=== PATIENT | male | born 1970 | race Caucasian/White ===

== ENCOUNTER 2022-09-18 01:28 | Day surgery (SDC) | payer OTHER, SELFPAY ==
[2022-09-11 10:42] VITALS: BMI 31.4
--- NOTE | 2022-09-17 13:02 | PM.HPGS ---
History of Present Illness History of Present Illness Consent: Risks, benefits, and alternatives have been discussed and questions answered. Patient agrees to proceed with procedure. Chief complaint: neoplasm screening Narrative: Hamilton Saldivar is a 52 year old male Who was referred for colon cancer screening. He also states that he gets extremely tight and bloated after drinking even a couple glasses of water or other liquid. Feels as though there may be an obstruction. The distension makes him cough and the coughing causes pain along his left costal margin, As also happens if he sits up. He is also somewhat tender along the margin. His weight is stable. He states that he has very little stool in feels that his food cannot get through or digest that there may be an obstruction. Review of Systems Review of Systems: All systems reviewed & are unremarkable except as noted in HPI and below PMFSH Past Medical History Medical History Hypertension Social History Social History Smoking packs per day: 0.5 Smoking cigarettes per day: 10.0 Smoking status: Former smoker Tobacco type: cigarettes and e-cigarettes/vaping Alcohol intake: current Drinks per week: 1 Substance use: never Substance use type: does not use Living arrangements: with family Spiritual care concerns: No Meds Home Medications and Allergies Home Medications Medication Instructions Recorded Confirmed Type lisinopril 10 mg tablet 10 mg PO DAILY 09/11/22 09/11/22 History Allergies Allergy/AdvReac Type Severity Reaction Status Date / Time cephalexin Allergy Intermediate NAUSEA/VOMI Verified 09/18/22 09:00 TTING codeine Allergy Intermediate NAUSEA/VOMI Verified 09/18/22 09:00 TTING Exam Chest: Chest palpation & inspection: tenderness ( Left costal margin) Resp: Auscultation: clear to auscultation bilaterally Cardio: Rate: regular rate Rhythm: regular rhythm GI: Inspection: other ( rounded) GI Palp: Yes Soft to palpation, No Tenderness to palpation present (GI) and Yes No hepatosplenomegaly present Percussion: Yes normal to percussion Auscultation: normal bowel sounds Assessment and Plan Assessment and plan (1) Colon cancer screening: Code(s): Z12.11 - Encounter for screening for malignant neoplasm of colon Status: Acute Assessment and Plan: Colonoscopy with possible biopsy or polypectomy or cautery or injection of substances.
[2022-09-18 09:02] VITALS: BP 156/89; PULSE 81; RESP 18; TEMP 36.4; O2SAT 99
[2022-09-18] MEDS: LACTATED RINGERS 1,000 ML 150 ML IV CONT (09:11)
--- NOTE | 2022-09-18 09:16 | WPDANESEPPF ---
Anes - Initial Pre Proc Eval Procedure: Operation Date: 09/18/22 10:15 Proposed Procedures p Screening Colonoscopy - Isaiah Waggoner MD Date/Time: 09/18/22 09:16 Surgeon: Isaiah Waggoner MD Pre Op Diagnosis: neoplasm screening Patient Data Age: 52 Gender: M Height: 1.8 m Weight: 110.8 kg Last Vital Signs Temp 36.4 C L 09/18/22 09:02 Pulse 81 09/18/22 09:02 Resp 18 09/18/22 09:02 BP 156/89 H 09/18/22 09:02 Pulse Ox 99 09/18/22 09:02 O2 Del Method Room Air 09/18/22 09:02 Allergies Allergy/AdvReac Type Severity Reaction Status Date / Time cephalexin Allergy Intermediate NAUSEA/VOMI Verified 09/18/22 09:00 TTING codeine Allergy Intermediate NAUSEA/VOMI Verified 09/18/22 09:00 TTING Home Medications Medication Instructions Recorded Confirmed Type lisinopril 10 mg tablet 10 mg PO DAILY 09/11/22 09/11/22 History Patient hx anesthesia problems: other (fighting agitated) Family hx anesthesia problems: none Results Review: All pre-operative results and documents have been reviewed as part of the pre-operative evaluation. [facility] Past Medical History Medical History Hypertension Social History Social History Smoking packs per day: 0.5 Smoking cigarettes per day: 10.0 Smoking status: Former smoker Tobacco type: cigarettes and e-cigarettes/vaping Alcohol intake: current Drinks per week: 1 Substance use: never Substance use type: does not use Living arrangements: with family Spiritual care concerns: No Anes - Eval Final PreProcedure Day of Procedure 09/18/22 09:16 Patient weight: obese Heart: regular rate and rhythm Lungs: clear to auscultation Airway: Mallampati scale class II Neurological: alert and oriented Last oral intake: >/= 8 hours ASA classification: II Emergent: no Anesthetic plan: proceed Anesthesia type and monitoring: general GIVS and standard monitoring Results Review: All pre-operative results and documents have been reviewed as part of the pre-operative evaluation. Informed Consent: The patient's anesthetic plan and its attendant risks and benefits were discussed with the patient/family/POA. Questions were solicited and answers provided to the satisfaction of the patient/family/POA.
[2022-09-18 10:48] VITALS: BP 130/95; PULSE 73; RESP 10; O2SAT 99
[2022-09-18 10:58] VITALS: BP 148/97; PULSE 71; RESP 27; O2SAT 99
[2022-09-18 11:08] VITALS: BP 127/84; PULSE 73; RESP 17; O2SAT 99
== END 2022-09-18 11:25 | disposition home or self-care (01) ==
PROVIDERS: PCP Nurse Practitioner Family; Visit Provider Internal Medicine Gastroenterology
PROC: 0DJD8ZZ Inspection of Lower Intestinal Tract, Via Natural or Artificial Opening Endoscopic (ICD-10-PCS; CPT 45378; principal; 2022-09-18 10:15)
DX: Z12.11 Encounter for screening for malignant neoplasm of colon (principal); K57.30 Diverticulosis of large intestine without perforation or abscess without bleeding; D12.5 Benign neoplasm of sigmoid colon; I10 Essential (primary) hypertension; Z87.891 Personal history of nicotine dependence; E66.9 Obesity, unspecified; Z68.34 Body mass index [BMI] 34.0-34.9, adult
CPT/HCPCS: 45380; 88305; J2001; J2704; J7120

== ENCOUNTER 2022-10-08 09:59 | Outpatient (CLI) | payer OTHER, SELFPAY ==
--- NOTE | ~2022-10-08 | XR_ITS ---
EXAMINATION: XR UGIAC w small bowel DATE: 10/08/2022 14:20 INDICATION: Gaseous abdominal distention and epigastric pain. TECHNIQUE: The patient drank thick barium, gas-producing crystals, and thin barium. Conventional supi ne abdomen radiographs and fluoroscopic spot radiographs of the esophagus, stomach, and proximal smal l bowel were obtained. Additional overhead radiographs were obtained during the transit through the s mall bowel. Spot fluoroscopic images of the small bowel were obtained upon contrast reaching the cec um. Fluoroscopy exposure time was 2.8 minutes. A total of 689 fluoroscopic images and 11 overhead rad iographs were obtained. COMPARISON: Upper GI study dated 11/23/2009 FINDINGS: The esophagus is normal without mass or stricture. Esophageal motility is normal. Unchanged very smal l sliding-type hiatal hernia with gastroesophageal junction approximately 2-3 cm above the level of t he diaphragm. There was no gastroesophageal reflux with provocative maneuvers. The stomach and proxim al small bowel are normal. Post cystectomy clips in right upper quadrant on the neurology physician radiographs. Transit time from the stomach to proximal colon was approximately 3 hours. There is normal caliber and mucosal fold pattern throug hout the small bowel. Terminal ileum is normal. No tethering or abnormal mass effect observed upon the small bowel with real-time fluoroscopy. IMPRESSION: 1. Unchanged very small sliding-type hiatal hernia. Otherwise unremarkable upper GI and small bowel f ollow-through study. Reviewed, dictated and finalized at location A. [facility]KER IMPRESSION: 1. Unchanged very small sliding-type hiatal hernia. Otherwise unremarkable uppe r GI and small bowel follow-through study.
== END 2022-10-08 10:00 | disposition home or self-care (01) ==
PROVIDERS: PCP Nurse Practitioner Family; Visit Provider Internal Medicine Gastroenterology
DX: R14.0 Abdominal distension (gaseous) (principal); K44.9 Diaphragmatic hernia without obstruction or gangrene
CPT/HCPCS: 74246; 74248

== ENCOUNTER 2023-03-27 04:22 | Day surgery (SDC) | payer OTHER, SELFPAY ==
[2023-03-12 11:17] VITALS: BMI 32.8
--- NOTE | 2023-03-26 14:49 | PM.HPGS ---
History of Present Illness History of Present Illness Consent: Risks, benefits, and alternatives have been discussed and questions answered. Patient agrees to proceed with procedure. Chief complaint: dysphagia Narrative: Hamilton Saldivar is a 52 year old male With dysphagia for food. for several months he would notice that after eating not very much would feel as though the food has not made it all the way down and he gets full easily. Surprisingly he has not lost weight. He has a lot of heartburn choose Tums all day several years ago he was on Nexium for few years when he was told he had esophagitis but he does not like to take pills and therefore had stopped it. Recent small bowel series was normal. He does feel however that there is some sort of a blockage per Review of Systems Review of Systems: All systems reviewed & are unremarkable except as noted in HPI and below PMFSH Past Medical History Medical History Hypertension Social History Social History Smoking packs per day: 1 Smoking cigarettes per day: 20.0 Years smoked: 10 Smoking pack-years: 10.00 Smoking status: Former smoker Tobacco type: cigarettes Alcohol intake: current Drinks per week: 2 Substance use: never Substance use type: does not use Living arrangements: with family Spiritual care concerns: No Meds Home Medications and Allergies Allergies Allergy/AdvReac Type Severity Reaction Status Date / Time cephalexin Allergy Intermediate NAUSEA/VOMI Verified 03/27/23 08:49 TTING codeine Allergy Intermediate NAUSEA/VOMI Verified 03/27/23 08:49 TTING Exam Const: General: alert Orientation/consciousness: patient oriented x3 Resp: Auscultation: clear to auscultation bilaterally Cardio: Rhythm: regular rhythm GI: GI Palp: Yes Soft to palpation and No Tenderness to palpation present (GI) Neuro: General: patient oriented x3 Assessment and Plan Assessment and plan (1) Dysphagia: Code(s): R13.10 - Dysphagia, unspecified Status: Acute Assessment and Plan: EGD with possible biopsy or dilatation or cautery.
[2023-03-27 08:50] VITALS: BP 152/104; PULSE 75; RESP 20; TEMP 36.3; O2SAT 98; BMI 34.5
[2023-03-27] MEDS: LACTATED RINGERS 1,000 ML 150 ML IV CONT (08:53)
--- NOTE | 2023-03-27 09:20 | WPDANESEPPF ---
Anes - Initial Pre Proc Eval Procedure: Operation Date: 03/27/23 09:45 Proposed Procedures p Esophagogastroduodenoscopy - Isaiah Waggoner MD Date/Time: 03/27/23 09:20 Surgeon: Isaiah Waggoner MD Pre Op Diagnosis: dysphagia Patient Data Age: 52 Gender: M Height: 1.8 m Weight: 112.4 kg Last Vital Signs Temp 97.3 F L 03/27/23 08:50 Pulse 75 03/27/23 08:50 Resp 20 03/27/23 08:50 BP 152/104 H 03/27/23 08:50 Pulse Ox 98 03/27/23 08:50 O2 Del Method Room Air 03/27/23 08:50 Allergies Allergy/AdvReac Type Severity Reaction Status Date / Time cephalexin Allergy Intermediate NAUSEA/VOMI Verified 03/27/23 08:49 TTING codeine Allergy Intermediate NAUSEA/VOMI Verified 03/27/23 08:49 TTING Patient hx anesthesia problems: none Family hx anesthesia problems: none Results Review: All pre-operative results and documents have been reviewed as part of the pre-operative evaluation. [facility] Past Medical History Medical History Hypertension Social History Social History Smoking packs per day: 1 Smoking cigarettes per day: 20.0 Years smoked: 10 Smoking pack-years: 10.00 Smoking status: Former smoker Tobacco type: cigarettes Alcohol intake: current Drinks per week: 2 Substance use: never Substance use type: does not use Living arrangements: with family Spiritual care concerns: No Anes - Eval Final PreProcedure Day of Procedure 03/27/23 09:20 Patient weight: obese Heart: regular rate and rhythm Lungs: clear to auscultation Airway: Mallampati scale class III Neurological: alert and oriented Last oral intake: >/= 8 hours ASA classification: II Emergent: no Anesthetic plan: proceed Anesthesia type and monitoring: general GIVS and standard monitoring Results Review: All pre-operative results and documents have been reviewed as part of the pre-operative evaluation. Informed Consent: The patient's anesthetic plan and its attendant risks and benefits were discussed with the patient/family/POA. Questions were solicited and answers provided to the satisfaction of the patient/family/POA.
[2023-03-27] MEDS: BENZOCAINE (*SP) 60 ML SPRAY CAN (HURRICAINE) 1 SPRAY MUCOUS MEM (09:34)
[2023-03-27 09:56] VITALS: BP 127/87; PULSE 78; RESP 23; O2SAT 94
[2023-03-27 10:06] VITALS: BP 128/90; PULSE 71; RESP 20; O2SAT 98
[2023-03-27 10:16] VITALS: BP 130/86; PULSE 64; RESP 16; O2SAT 96
== END 2023-03-27 10:25 | disposition home or self-care (01) ==
PROVIDERS: PCP Nurse Practitioner Family; Visit Provider Internal Medicine Gastroenterology
PROC: 0DJ08ZZ Inspection of Upper Intestinal Tract, Via Natural or Artificial Opening Endoscopic (ICD-10-PCS; CPT 43235; principal; 2023-03-27 09:45)
DX: K22.70 Barrett's esophagus without dysplasia (principal); Z87.891 Personal history of nicotine dependence; E66.9 Obesity, unspecified; Z68.34 Body mass index [BMI] 34.0-34.9, adult
CPT/HCPCS: 43239; 87081; 88305; J2704; J7120

== ENCOUNTER 2024-01-25 14:48 | Outpatient (CLI) | payer OTHER, SELFPAY ==
--- NOTE | ~2024-01-25 | XR_ITS ---
Lumbosacral Spine: AP and lateral views Clinical History: Pain Findings: The normal lordotic curve is maintained. The vertebral bodies and posterior elements are i ntact. The intervertebral disc spaces are preserved. Moderate facet joint degenerative changes are p resent throughout the lumbar spine. The sacroiliac joints are normally outlined. Impression: Moderate facet arthropathy in the lumbar spine. Reviewed, dictated and finalized at location . Impression: Moderate facet arthropathy in the lumbar spine.
--- NOTE | ~2024-01-25 | XR_ITS ---
EXAM: XR shoulder RT min 2V DATE: 01/25/2024 15:11 HISTORY: M25.511 - Pain in right shoulder . COMPARISON: 01/29/2007.. FINDINGS: Normal mineralization. No fracture or dislocation. No lytic or blastic lesion. Moderate AC joint hypertrophy. Mild glenohumeral joint narrowing and subchondral sclerosis. No erosion or perios teal change. Soft tissues within normal limits. IMPRESSION: Polyarticular osteoarthritis of the right shoulder. Reviewed, dictated and finalized at location K.
--- NOTE | ~2024-01-25 | XR_ITS ---
Thoracic spine: Clinical Indication: Back pain AP and lateral views were performed. No fracture is seen. There is normal alignment of the vertebrae. The intervertebral disc spaces appe ar normal. Paravertebral soft tissues appear normal. Impression: No significant abnormalities noted. Reviewed, dictated and finalized at [facility]. Impression: No significant abnormalities noted.
== END 2024-01-25 14:49 ==
LOC: MICIMG 14:50
PROVIDERS: PCP Nurse Practitioner Adult Health; Visit Provider Nurse Practitioner Adult Health
DX: M25.511 Pain in right shoulder (principal); M54.9 Dorsalgia, unspecified; M12.88 Other specific arthropathies, not elsewhere classified, other specified site; M19.011 Primary osteoarthritis, right shoulder
CPT/HCPCS: 72070; 72100; 73030

== ENCOUNTER 2024-05-14 08:11 | Outpatient (CLI) | payer OTHER, SELFPAY ==
--- NOTE | ~2024-05-14 | US_ITS ---
US abdomen complete DATE: 05/14/2024 09:39 INDICATION: Generalized abdominal pain TECHNIQUE: Real-time imaging and Doppler analysis of the abdomen COMPARISON: 04/18/2016 CT abdomen pelvis FINDINGS: The gallbladder is surgically absent. Hepatic steatosis. Approximately 7 mm right hepatic cyst. Normal hepatopedal portal venous flow direc tion. The common bile duct measures 3.5 mm, normal. The pancreas appears unremarkable. Splenic size is within normal range, measuring 11.5 cm length. Normal caliber of the abdominal aorta. Flow is detected in the inferior vena cava. 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 Left kidney measures 14.9 x 8.0 x 7.0 cm. There is a relatively sonolucent lobular 3.3 x 3.1 x 3.9 cm lesion in the left kidney lower pole, not identified on noncontrast CT examination of 04/18/2016. Con sidering the fact that this is the only kidney for this patient, further evaluation is recommended an d might include CT with IV contrast material or MR examination. IMPRESSION: Apparently new relatively sonolucent 3.3 x 3.1 x 3.9 cm lobular left renal lower pole les ion, not evident on 04/18/2016 CT examination. Given that this is the only kidney for this patient wit h congenital absence of the right kidney, further evaluation with CT contrast examination or MR corre lation is recommended. Hepatic steatosis 7 mm hepatic cyst Reviewed, dictated and finalized at Location A. Reviewed, dictated and finalized at location J. IMPRESSION: Apparently new relatively sonolucent 3.3 x 3.1 x 3.9 cm lobular lef t renal lower pole lesion, not evident on 04/18/2016 CT examination. Given that this is the only kidney for this patient with congenital absence of the right k idney, further evaluation with CT contrast examination or MR correlation is rec ommended. Hepatic steatosis 7 mm hepatic cyst
--- NOTE | ~2024-05-14 | MR_ITS ---
EXAMINATION: MR lumbar spine wo con DATE: 05/14/2024 08:58 INDICATION: Dorsalgia TECHNIQUE: Magnetic resonance imaging (MRI) of the lumbar spine was performed without intravenous con trast. Sequences included sagittal T2-weighted FSE, sagittal T2-weighted FS FSE, sagittal T1-weighted FSE, and axial T2-weighted FSE. COMPARISON: None FINDINGS: Alignment is normal. Vertebral body heights are normal. There are small Schmorl's nodes at a few of t he endplates in the lumbar and lower thoracic spine. Normal marrow signal. Mild disc height loss at T 12 and L4-L5. The conus medullaris terminates at L1-L2. There is normal signal in the caudal spinal c ord. Paravertebral soft tissues are unremarkable. The following disc levels are specifically discusse d: T12-L1: The disc does not extend beyond the endplate margin. There is mild bilateral facet joint oste oarthritis. There is no neural foraminal stenosis. There is no central canal stenosis. L1-L2: The disc does not extend beyond the endplate margin. There is mild bilateral facet joint osteo arthritis. There is mild left neural foraminal stenosis. There is no central canal stenosis. L2-L3: The disc does not extend beyond the endplate margin. There is mild bilateral facet joint osteo arthritis. There is mild bilateral neural foraminal stenosis. There is no central canal stenosis. L3-L4: Small bilateral foraminal zone disc protrusions. There is mild to moderate bilateral facet manuel nt osteoarthritis. There is mild to moderate bilateral neural foraminal stenosis. There is mild centr al canal stenosis. L4-L5: The disc does not extend beyond the endplate margin. There is mild bilateral facet joint osteo arthritis. There is mild right and mild to moderate left neural foraminal stenosis. There is no centr al canal stenosis. L5-S1: The disc does not extend beyond the endplate margin. There is mild bilateral facet joint osteo arthritis. There is mild right and mild to moderate left neural foraminal stenosis. There is no centr al canal stenosis. IMPRESSION: 1. Mild lumbar spondylosis. Reviewed, dictated and finalized at location A. IMPRESSION: 1. Mild lumbar spondylosis.
== END 2024-05-14 08:12 ==
LOC: MICIMG 08:12
PROVIDERS: PCP Nurse Practitioner Adult Health; Visit Provider Nurse Practitioner Adult Health
DX: K76.0 Fatty (change of) liver, not elsewhere classified (principal); K76.89 Other specified diseases of liver; M43.06 Spondylolysis, lumbar region
CPT/HCPCS: 72148; 76700

== ENCOUNTER 2024-05-24 13:52 | Outpatient (CLI) | payer OTHER, SELFPAY ==
--- NOTE | ~2024-05-24 | CT_ITS ---
EXAMINATION: CT abdomen pelvis wo/w con DATE: 05/24/2024 14:30 INDICATION: Disorder kidney and ureter, unspecified. TECHNIQUE: Computed tomography (CT) of the abdomen and pelvis was performed without and with 100 mL O mnipaque 350 intravenous contrast. Automated exposure control and iterative reconstruction technique were employed. The dose-length product was 1780.86 mGy-cm. COMPARISON: CT abdomen pelvis 04/18/2016, ultrasound 05/14/2024 FINDINGS: The visualized portions of the lung bases demonstrate mild atelectasis and mild chronic facundo g disease. No pleural effusion. The heart size is normal. No pericardial effusion. There is diffuse h epatic steatosis. There is a 6 mm cyst in the liver. There are changes of cholecystectomy. The spleen , pancreas, and adrenal glands are normal. There are 3.8 cm and 0.7 cm cysts in left kidney. Right ki dney is absent. The prostate is mildly enlarged. There is diverticulosis of the colon without evidenc e of diverticulitis. There are no dilated loops of bowel. The appendix is normal. There are no pathol ogically enlarged lymph nodes. There is no free intraperitoneal fluid. There is mild thoracic and lum bar spondylosis. There is mild chronic anterior wedging of multiple thoracic vertebral bodies. IMPRESSION: 1. Benign cysts in left kidney. 2. Absent right kidney. 3. Diffuse hepatic steatosis. Reviewed, dictated and finalized at location A.
[2024-05-24 14:20] LABS: Estimated Glomerular Filt Rate 57
== END 2024-05-24 13:53 ==
LOC: MICIMG 13:52
PROVIDERS: PCP Nurse Practitioner Adult Health; Visit Provider Nurse Practitioner Adult Health
DX: N28.9 Disorder of kidney and ureter, unspecified (principal); N28.1 Cyst of kidney, acquired; Z90.5 Acquired absence of kidney; K76.0 Fatty (change of) liver, not elsewhere classified
CPT/HCPCS: 74178; Q9967

== ENCOUNTER 2024-05-24 13:53 | Outpatient (CLI) | payer OTHER, SELFPAY ==
--- NOTE | ~2024-05-24 | MR_ITS ---
EXAMINATION: MR shoulder RT wo con DATE: 05/24/2024 15:05 INDICATION: Right shoulder pain. TECHNIQUE: Magnetic resonance imaging (MRI) of the right shoulder was performed without intravenous c ontrast. Sequences included axial PD-weighted FS FSE, coronal oblique PD-weighted FS FSE and T2-weigh yoli FS FSE, and sagittal oblique T2-weighted FS FSE and T1-weighted FSE. COMPARISON: Right shoulder radiographs 01/25/2024 FINDINGS: Coracoacromial arch: The acromion undersurface is flat in morphology (type I). There is severe acromioclavicular joint ost eoarthritis including inferiorly directed osteophytes. There is mild subacromial/subdeltoid bursitis. Rotator cuff: There is a bursal sided partial-thickness tear of supraspinatus and infraspinous tendons measuring 11 mm anterior to posterior by 3 mm proximal to distal by 50% tendon thickness. Teres minor tendon is n ormal. There is mild subscapularis tendinopathy. There is no asymmetric fatty atrophy of the rotator cuff muscle bellies. Biceps tendon and glenoid labrum: Biceps tendon is in bicipital groove. Intra-articular biceps tendon is normal. There is tear of the s uperior labrum from 11:00 to 1:00 (SLAP tear). Fluid: There is no glenohumeral joint effusion. Bones/cartilage: Glenoid cartilage is normal. Humeral head cartilage is normal. IMPRESSION: 1. Bursal-sided partial-thickness tear of supraspinatus and infraspinous tendons. 2. SLAP tear. 3. Severe acromioclavicular joint osteoarthritis. 4. Mild subacromial/subdeltoid bursitis. Reviewed, dictated and finalized at location A. IMPRESSION: 1. Bursal-sided partial-thickness tear of supraspinatus and infraspinous tendon s. 2. SLAP tear. 3. Severe acromioclavicular joint osteoarthritis. 4. Mild subacromial/subdeltoid bursitis.
== END 2024-05-24 13:54 ==
LOC: MICIMG 13:54
PROVIDERS: PCP Nurse Practitioner Adult Health; Visit Provider Physician Assistant Surgical
DX: S43.431A Superior glenoid labrum lesion of right shoulder, initial encounter (principal); M19.011 Primary osteoarthritis, right shoulder; M75.51 Bursitis of right shoulder; S46.811A Strain of other muscles, fascia and tendons at shoulder and upper arm level, right arm, initial encounter
CPT/HCPCS: 73221

== ENCOUNTER 2024-08-16 00:25 | Day surgery (SDC) | payer OTHER, SELFPAY ==
[2024-08-10 08:21] VITALS: BMI 30.7
--- NOTE | 2024-08-10 08:28 | PC.NURSE ---
Report to the Outpatient Waiting Room, entrance under the green pavilion located off [facility], at time _0830_ on date _[id number]_. Planned Procedure Time: _1030_.? Time changes happen often and if your time is changed the preop area will call you the afternoon before. - You and your visitor will be asked to self-screen and do not enter if you have any COVID symptoms. Please call surgeon if you need to reschedule. - A mask is optional within the hospital at this time. Patients may have clear liquids (water, carbonated beverages, clear teas, apple juice) until 3 hours prior to surgery with a maximum of 20 ounces. - No food from midnight until time of surgery and no smoking Take only the following medications with a SIP of water on the morning of surgery: ___None____ DO NOT STOP ANY OF YOUR OTHER PRESCRIPTION MEDICATIONS PRIOR TO SURGERY EXCEPT THE FOLLOWING Medications to discontinue per physician ___Patient already stopped Ileaah__[id number]_ Date to take last dose__ Please no make-up, nail setswana, hairspray, perfume, deodorant, or body powder the day of surgery.? No jewelry (including any body piercings) or valuables the day of surgery, leave them at home.? Please take a shower or bath the night before, or the morning of, surgery with an antibacterial soap.? Wear comfortable, loose fitting clothing.? - Jewelry must be removed prior to entering the operating room.? Rings and piercings that are not removed may be cut off. - The hospital will not accept responsibility for valuables.? - Please leave all valuables, including medications, at home the day of surgery. If you are going home after surgery, a licensed ems driver must drive you home.? - NO public transportation without another adult if you receive anesthesia. - We recommend that an adult stay with you for 24 hours following discharge. - We also recommend that you do not drive, make important decision, drink alcoholic beverages, or take any drugs that were not prescribed by your health care provider for at least 24 hours after your discharge time. Follow any additional instructions given to you from your surgeon. Telephone instructions given to __Scott__and asked if any additional questions and then verbalized understanding. Patient advised to call surgeon office or pre surgery nurse liaison [phone] if any additional questions.
[2024-08-16] VITALS (9 sets, daily range): BP systolic 127–145; BP diastolic 83–98; PULSE 68–79; RESP 11–20; TEMP 36–36.9; O2SAT 94–98
--- NOTE | 2024-08-16 09:38 | WPDHPUPDATE1 ---
History and Physical Update Update Date/Time: 08/16/24 09:38 History and Physical has been reviewed, including an updated exam of the patient. There are NO changes in the patient's condition. Risks, benefits, and alternatives have been discussed and questions answered. Patient agrees to proceed with procedure.
[2024-08-16] MEDS: KETOROLAC 15 MG/ML VIAL (*BKC) IV PUSH (10:00)
[2024-08-16] MEDS: LACTATED RINGERS 1,000 ML 30 ML IV CONT ×2 (10:00→12:00)
[2024-08-16] MEDS: ACETAMINOPHEN 500 MG TABLET 1000 MG PO (10:00)
--- NOTE | 2024-08-16 10:01 | P.PNAN_ITS ---
Anes - Initial Pre Proc Eval Procedure: Operation Date: 08/16/24 10:30 Proposed Procedures p Right Shoulder Arthroscopic Rotator Cuff Repair with Subacomial Decompression - Yuri Lucas MD Date/Time: 08/16/24 10:01 Surgeon: Yuri Lucas MD Pre Op Diagnosis: partial thickness right rotator cuff tear Patient Data Age: 54 Gender: M Height: 1.8 m Weight: 100 kg Allergies Allergy/AdvReac Type Severity Reaction Status Date / Time cephalexin Allergy Intermediate NAUSEA/VOMI Verified 08/10/24 08:19 TTING codeine Allergy Intermediate NAUSEA/VOMI Verified 08/10/24 08:19 TTING Home Medications Medication Instructions Recorded Confirmed Type rabeprazole 20 mg tablet,delayed 20 mg PO BID #180 tabs 07/04/24 08/10/24 Rx release (AcipHex) semaglutide (weight loss) 2.4 2.4 mg subcut WEEKLY 08/10/24 08/10/24 History mg/0.75 mL subcutaneous pen injector (Wegovy) Patient hx anesthesia problems: none Family hx anesthesia problems: none Results Review: All pre-operative results and documents have been reviewed as part of the pre- operative evaluation. [facility] Past Medical History Medical History (Updated 08/16/24 @ 10:02 by Abrahan Garcia MD) Hypertension Obesity Surgical History Surgical History (Updated 08/16/24 @ 10:02 by Abrahan Garcia MD) History of cholecystectomy Family History Family History Father EtOH dependence Mother Hypertension Depression COPD (chronic obstructive pulmonary disease) Social History Social History Smoking packs per day: 1 Smoking cigarettes per day: 20.0 Years smoked: 20 Smoking pack-years: 20.00 Smoking status: Former smoker Tobacco type: cigarettes Smoking end date: 08/10/17 Alcohol intake: current Drinks per week: 2 Substance use: never Substance use type: does not use Do You Feel Safe in your Home?: Yes Lack of Transportation: No Lack of Food: Never True Current Housing: I Have Housing Concerned About Future Housing: No Difficulty Paying Gas/Electric Bills: No Difficulty Paying for Meds: No Currently Unemployed: No Education: High School Diploma/GED Difficulty w/ Childcare or Family Care: No Living arrangements: with family Occupation/Education: occupation Additional occupation/education comments: [employer] Gender identity (if verbalized by the patient): Male Spiritual care concerns: No Agree to blood products: Yes Anes - Eval Final PreProcedure Day of Procedure 08/16/24 10:01 Patient weight: obese Heart: regular rate and rhythm Lungs: clear to auscultation Airway: Mallampati scale class III Neurological: alert and oriented Last oral intake: >/= 8 hours ASA classification: III Emergent: no Anesthetic plan: proceed Anesthesia type and monitoring: general ETT and standard monitoring Results Review: All pre-operative results and documents have been reviewed as part of the pre-o perative evaluation. Informed Consent: The patient's anesthetic plan and its attendant risks and benefits were discussed with the patient/family/POA. Questions were solicited and answers provided to the satisfaction of the patient/family/POA.
--- NOTE | 2024-08-16 10:17 | WPDANESPNB ---
Anes - Peripheral Nerve Block Date/Time: 08/16/24 10:17 I have discussed with the patient/family/POA the placement of a peripheral nerve block for post-operative pain management, including associated risks, benefits, complications, and side effects. Alternative methods of post-operative analgesia were detailed. Questions were solicited and answers provided to the satisfaction of the patient/family/POA. Time-Out: A pre-procedural Time-Out was completed immediately before starting the procedure and confirmed: Patient Identification, Site, Procedure, Patient Position and the Availability of Requisite Equipment. Clinical Indications: Acute post-operative pain management requested by the operative surgeon. Nerve Block Insertion Note Anes-nerve block: interscalene right Patient position: supine Skin prep: chlorhexidine Needle: 22 gauge, stimulating, insulated echogenic needle. Needle length: 50 mm Technique: ultrasound Injectate: bupivacaine 0.5% with epi 5 mcg/ml (30cc no epi) and dexamethasone (mg) (8) Observations: tolerated well Complications: none Procedure start time:: 1008 Procedure end time:: 1016
[2024-08-16] MEDS: CLINDAMYCIN 900 MG/D5W 50 ML 900 MG/50 ML PIGGYBACK 50 MG IVPB (10:25)
[2024-08-16] MEDS: EPINEPHrine HCL INJ 1 MG/ML AMPUL 3 MG IRRIGATION (10:40)
--- NOTE | 2024-08-16 12:40 | W.PM.PROC2 ---
Procedure Note - Detailed Date of Procedure 08/16/24 Pre-op Diagnosis Partial thickness right rotator cuff tear Post-op Diagnosis Other (1. Partial thickness rotator cuff tear 2. Subacromial impingement 3. Degenerative labral tear) Procedure Performed Right shoulder 1. Arthroscopic rotator cuff repair 2. Arthroscopic subacromial decompression 3. Arthroscopic labral debridement Surgeon Yuri Lucas MD Admissions Manager Angela Archer PA-C Anesthesia General and Regional ( interscalene block) Findings Low-grade articular and bursal side rotator cuff tear of the supraspinatus. Remaining tissue healthy. Clear evidence of subacromial impingement with fraying of the bursal rotator cuff on the undersurface of the anterolateral acromion and cortical acromial ligament. Decompression performed with release of the coracoacromial ligament and acromioplasty. The bursa tissue was quite thickened in this area and throughout the subacromial space. Complete bursectomy was performed. The superior labrum showed a large tear with a loose fragment floating in the joint. There was also some tearing of the inferior posterior inferior labrum which was treated with debridement. All areas were subsequently treated with the radiofrequency probe to further debridement and confirm a tapered debridement. The biceps anchor and biceps appeared healthy and stable. The subscapularis had minimal fraying and required simple debridement only. The rotator cuff was repaired with the Regeneten collagen implant with 5 ADDY soft tissue anchors and 2 peek bone anchors. The large implant was used, which covered the tendon defect very nicely. Description of Procedure Preoperative antibiotics were given. An interscalene block was administered in the preoperative area. The patient was bought brought to the operating room. A general anesthetic was administered. The patient was carefully positioned in the beach chair position. The head and neck were carefully positioned. The non operative extremity was also carefully positioned. The shoulder was prepped and draped in the usual sterile fashion. Examination was performed. Standard posterior and anterior arthroscopic portals were established. Inflow achieved with the arthroscopic pump using saline and epinephrine. The glenohumeral joint was carefully inspected. The articular cartilage was healthy. The labrum was torn at the superior SLAP area as well as at the posterior inferior area. After debridement the remaining labrum was intact as well as the biceps anchor and biceps. The subscapularis had mild fraying which was treated with gentle debridement. The undersurface of the rotator cuff showed low to midgrade 20-30% tearing of the articular tendon. This was gently debrided, and marked with PDS suture using a spinal needle. The anterior cuff margin at the biceps was also marked. Attention was turned to the subacromial space. The bursa was hypertrophic. A complete bursectomy was performed. There was evidence of impingement on the bursal side rotator cuff tear with approximately 10-15% fraying. Clear impingement was confirmed with the anterolateral acromion and coracoacromial ligament. There was no penetrating lesion on the bursal side after careful probing. The large Regeneten graft was introduced laterally. It was secured medially in the tendon with 5 ADDY anchors. It was secured laterally to bone with 2 peek anchors. The arthroscopic instruments were removed. The wounds were closed with 3-0 Monocryl subcuticular suture and steri strips. There were no complications. A sling was applied and the patient brought to the recovery room. Physician facilities maintenance assistant, Angela Archer PA-C, required for surgery; including patient positioning, draping, arthroscopic camera operation, maintaining instrument position, graft positioning, and anchor placement, wound closure, and dressing and sling placement. Implants [employer] Regeneten large collagen implant. Five ADDY soft tissue anchors. Two peek bone anchors. Estimated Blood Loss 20 Pathology None sent Complications No immediate complications Condition Stable Disposition PACU [facility] Billing Surgery - Charge Forward: Surgery Billing
[2024-08-16] MEDS: ONDANSETRON INJ 4 MG/2 ML VIAL IV PUSH (12:56)
== END 2024-08-16 13:50 | disposition home or self-care (01) ==
PROVIDERS: PCP Nurse Practitioner Adult Health; Visit Provider Orthopaedic Surgery
PROC: (CPT 29805; principal; 2024-08-16 10:30)
DX: S46.011A Strain of muscle(s) and tendon(s) of the rotator cuff of right shoulder, initial encounter (principal); M75.81 Other shoulder lesions, right shoulder; M75.41 Impingement syndrome of right shoulder; X50.0XXA Overexertion from strenuous movement or load, initial encounter; G89.18 Other acute postprocedural pain; Z87.891 Personal history of nicotine dependence; E66.9 Obesity, unspecified; Z68.31 Body mass index [BMI] 31.0-31.9, adult
CPT/HCPCS: 29827; 29826; 64415; A9270; C1713; J0171; J0330; J1100; J1885; J2003; J2250; J2371; J2405; J2704; J3010; J7120

== ENCOUNTER 2024-08-17 10:56 | Observation (INO) | payer OTHER, SELFPAY ==
[2024-08-17] VITALS (9 sets, daily range): BP systolic 129–172; BP diastolic 74–96; PULSE 72–82; RESP 12–18; TEMP 36.6; O2SAT 96–98; BMI 28.3
--- NOTE | ~2024-08-17 | XR_ITS ---
Portable chest x-ray Comparison: 08/17/2024 Clinical History: Shortness of breath Findings: Lungs are clear, without focal consolidation or pleural effusion. Cardiomediastinal silho uette is stable. Bones and soft tissues are unremarkable. Impression: Clear lungs. Reviewed, dictated and finalized at location . [employer]IT INST[employer]ER Impression: Clear lungs.
--- NOTE | ~2024-08-17 | XR_ITS ---
EXAMINATION: XR chest 2V, XR shoulder RT min 2V DATE: 08/17/2024 14:46 INDICATION: Shortness of breath. Chest pain. Something is wrong with right shoulder post recent emmie tc. TECHNIQUE: 1. PA and lateral views of the chest were obtained. 2. 4 views of the shoulder including internal and external rotated AP views, Grashey view and transsc apular Y view. COMPARISON: Right shoulder and thoracic spine radiographs dated 01/25/2024 FINDINGS: Chest: Mild elevation the right hemidiaphragm. There is consolidation at the posterior medial basilar right lower lobe which could represent atelectasis or pneumonia. Remainder of the lungs are clear. No pulmo nary edema, pleural effusion or pneumothorax. The cardiomediastinal silhouette is normal. Mild thorac ic spondylosis with chronic mild anterior wedging of a few lower thoracic vertebral bodies. Right shoulder: Alignment is normal. No fracture. The humeral joint space is normal. Moderate acromioclavicular osteo arthritis. Soft tissues are unremarkable. IMPRESSION: 1. Consolidation at the posterior medial basilar right lower lobe which could represent atelectasis o r pneumonia. 2. Mild right glenohumeral and moderate acromioclavicular osteoarthritis. Reviewed, dictated and finalized at location B. F OPERATOR IMPRESSION: 1. Consolidation at the posterior medial basilar right lower lobe which could r epresent atelectasis or pneumonia. 2. Mild right glenohumeral and moderate acromioclavicular osteoarthritis.
--- NOTE | 2024-08-17 14:26 | ECG_ITS ---
Test Date: 2024-08-17 14:53:51 Measurements Intervals Fults Rate: 77 P: 20 KS: 174 QRS: 8 QRSD: 102 T: 30 QT: 351 QTc: 398 Interpretive Statements SINUS RHYTHM WITH SINUS ARRHYTHMIA BASELINE ARTIFACT- I, III, AVR, AVL, AVF, V1-V6 NORMAL ECG No previous ECG available for comparison Electronically Signed On 08-17-2024 14:57:02 SOLUTION COORDINATOR by Michael Sheridan D.O.
--- NOTE | 2024-08-17 14:27 | ED.SOB ---
HPI - SOB/Dyspnea General Chief Complaint: Shortness of Breath/Dyspnea <Brittanie Aguilar APRN - Last Filed: 08/17/24 14:31> Stated Complaint: post op complications <Brittanie Aguilar APRN - Last Filed: 08/17/24 14:31> Time Seen by Provider: 08/17/24 14:20 <Brittanie Aguilar APRN - Last Filed: 08/17/24 14:31> Focused HPI: Patient is a 54-year-old male who presents to the ER with complaints of shortness of breath and chest pain. He had right rotator cuff surgery yesterday and reports he had trouble laying flat last night. Patient reports he started coughing and has significant left-sided lower chest pain. He also endorses swelling up my neck and feel as though his right arm is weight. Patient reports his orthopedic surgeon expected him to be able to move his right arm by this morning but patient is were because he has had very limited range of motion. He denies any fever, lower extremity swelling, or other signs/ symptoms of infection. GENERAL: Well-appearing, well-nourished, and in no acute distress. HEAD: Normocephalic, atraumatic. CHEST: Clear to auscultation. ?No respiratory distress. HEART: Regular rate and rhythm.? NEURO: ?Alert and oriented x3. Patient screened in triage and initial orders placed.? ?Additional care and disposition to be based upon?diagnostic testing and treatment. <Brittanie Aguilar APRN - Last Filed: 08/17/24 14:31> Source: patient <Pelon Goel PA-C - Last Filed: 08/18/24 02:12> Mode of arrival: ambulatory <Pelon Goel PA-C - Last Filed: 08/18/24 02:12> Limitations: no limitations <SAM Singleton Last Filed: 08/18/24 02:12> History of Present Illness HPI Narrative: Agree with triage note above. Per chart review patient had a right interscalene peripheral nerve block with anesthesia yesterday. <SAM Singleton Last Filed: 08/18/24 02:12> Related Data Home Medications: Home Medications Medication Instructions Recorded Confirmed semaglutide (weight loss) 2.4 2.4 mg subcut WEEKLY 08/10/24 08/17/24 mg/0.75 mL subcutaneous pen injector (Wegovy) <Brittanie Augilar APRN - Last Filed: 08/17/24 14:31> Allergies/Adverse Reactions: Allergies Allergy/AdvReac Type Severity Reaction Status Date / Time cephalexin AdvReac Intermediate NAUSEA/VOMI Verified 08/16/24 10:53 TTING codeine AdvReac Intermediate NAUSEA/VOMI Verified 08/16/24 10:53 TTING <Brittanie Aguilar APRN - Last Filed: 08/17/24 14:31> Review of Systems Review of Systems: All systems as dictated in HPI <Pelon Goel PA-C - Last Filed: 08/18/24 02:12> [facility] Past Medical History Medical History: Medical History GERD (gastroesophageal reflux disease) Hypertension Obesity <Brittanie Aguilar APRN - Last Filed: 08/17/24 14:31> Surgical History Surgical History: Surgical History History of cholecystectomy S/P right rotator cuff repair <Brittanie Aguilar APRN - Last Filed: 08/17/24 14:31> Family History Family History: Family History (Updated 08/17/24 @ 22:58 by Nanda Shen RN) Father EtOH dependence Liver transplant recipient Mother Depression COPD (chronic obstructive pulmonary disease) Hypertension <Brittanie Aguilar APRN - Last Filed: 08/17/24 14:31> Social History Social History: Social History Smoking packs per day: 1 Smoking cigarettes per day: 20.0 Years smoked: 20 Smoking pack-years: 20.00 Smoking status: Former smoker Tobacco type: cigarettes Smoking end date: 08/10/17 Alcohol intake: current Drinks per week: 1 Substance use: never Substance use type: does not use Do You Feel Safe in your Home?: Yes Lack of Transportation: No Lack of Food: Never True Current Housing: I Have Housing Concerned About Future Housing: No Difficulty Paying Gas/Electric Bills: No Difficulty Paying for Meds: No Currently Unemployed: No Education: High School Diploma/GED Difficulty w/ Childcare or Family Care: No Living arrangements: with family Occupation/Education: occupation Additional occupation/education comments: [employer] Gender identity (if verbalized by the patient): Male Spiritual care concerns: No Agree to blood products: Yes <Brittanie Aguilar APRN - Last Filed: 08/17/24 14:31> Exam Narrative: GENERAL: Well-appearing, well-nourished, and in no acute distress. HEAD: Normocephalic, atraumatic. EYES: PERRLA and EOMI. ENT: Nares clear, no rhinorrhea or epistaxis. Mucous membranes moist. Oropharynx without tonsillar hypertrophy exudate or other lesions. NECK: Supple. No adenopathy or masses. CHEST: No respiratory distress. Clear to auscultation. 100% on room air. Is difficult for him to take a deep breath without pain. HEART: Regular rate and rhythm. No murmur heard. Normal peripheral pulses. ABDOMEN: Soft, nontender, nondistended, normal active bowel sounds. MSK: Normal range of motion. No edema. SKIN: Warm, dry, no rash. NEURO: Alert and oriented x4. No focal deficits. PSYCH: Normal mood and affect. <Pelon Goel PA-C - Last Filed: 08/18/24 02:12> Course Vital Signs Vital signs: Vital Signs Temperature 98 F 08/17/24 11:08 Pulse Rate 77 08/17/24 11:08 Respiratory Rate 16 08/17/24 11:08 Blood Pressure 129/74 08/17/24 11:08 Pulse Oximetry 97 08/17/24 11:08 Oxygen Delivery Room Air 08/17/24 11:08 Temperature 98.2 F 08/18/24 00:25 Pulse Rate 86 08/18/24 00:25 Respiratory Rate 18 08/18/24 00:25 Blood Pressure 137/66 08/18/24 00:25 Pulse Oximetry 98 08/18/24 00:25 Oxygen Delivery Room Air 08/17/24 23:35 Oxygen Flow Rate 2 08/17/24 20:57 <Brittanie Aguilar APRN - Last Filed: 08/17/24 14:31> Vital Signs Temperature 98 F 08/17/24 11:08 Pulse Rate 77 08/17/24 11:08 Respiratory Rate 16 08/17/24 11:08 Blood Pressure 129/74 08/17/24 11:08 Pulse Oximetry 97 08/17/24 11:08 Oxygen Delivery Room Air 08/17/24 11:08 Temperature 98.2 F 08/18/24 00:25 Pulse Rate 86 08/18/24 00:25 Respiratory Rate 18 08/18/24 00:25 Blood Pressure 137/66 08/18/24 00:25 Pulse Oximetry 98 08/18/24 00:25 Oxygen Delivery Room Air 08/17/24 23:35 Oxygen Flow Rate 2 08/17/24 20:57 <Pelon Goel PA-C - Last Filed: 08/18/24 02:12> MDM - SOB/Dyspnea MDM Narrative Medical decision making narrative: This is a 54-year-old male who presents to the ED for chief complaint of for dyspnea 1 day s/p rotator cuff repair. Vitals are normal.. Exam shows normal oxygen saturation on room air, however patient is having significant difficulty with deeper breathing. [place] [id number], however this is much more likely to be a postsurgical finding rather than an acute infectious finding today. D-dimer is negative. CMP unremarkable. Chest x-ray revealing atelectasis and mild right hemidiaphragm elevation. Suspect presentation is consistent with phrenic nerve paralysis with the interscalene block done yesterday. I do feel this is causing the atelectasis. He was started on incentive spirometry in the ED. I consulted with Orthopedics, Dr. Morillo who does recommend the patient be admitted. I also spoke with the hospitalist MINE TECHNICIAN, Cassidy who will admit the patient under Dr. Bhatt. Patient is understanding and agreeable with plan for admission at this time. Admitted in stable condition <Pelon Goel PA-C - Last Filed: 08/18/24 02:12> Lab Data Result diagrams: 08/17/24 15:03 08/17/24 15:03 <Brittanie Aguilar APRN - Last Filed: 08/17/24 14:31> Labs: Lab Results 08/17/24 Range/Units 15:03 WBC 24.4 H (4.5-10.0) K/mm3 RBC 5.37 (4.6-6.20) M/mm3 Hgb 16.3 (14.0-18.0) g/dL Hct 49.3 (42.0-52.0) % MCV 91.8 (80-100) fl MCH 30.4 (26-34) pg MCHC 33.1 (32-36) g/dl RDW 13.7 (11.5-14.5) % Plt Count 386 H (150-375) k/mm3 MPV 8.9 (7.4-10.4) fl Immature Gran % (Auto) Not Reportable Neut % (Auto) Not Reportable Lymph % (Auto) Not Reportable [place] % (Auto) Not Reportable Eos % (Auto) Not Reportable Baso % (Auto) Not Reportable Lymph # (Auto) Not Reportable [place] # (Auto) Not Reportable Eos # (Auto) Not Reportable Baso # (Auto) Not Reportable Abs Immat Gran (auto) Not Reportable Absolute Neuts (auto) Not Reportable Absolute Nucleated RBC Not Reportable Total Counted 100 Neutrophils % (Manual) 87 H (46-73) % Lymphocytes % (Manual) 9.0 L (18-44) % Monocytes % (Manual) 4 (3-9) % Nucleated RBC % Not Reportable Abs Lymphs (Manual) 2.19 (1.1-4.5) K/mm3 Abs Monocytes (Manual) 0.97 H (0.1-0.90) K/mm3 Platelet Estimate Slightly increased (Adequate) Schistocytes None seen PT 13.7 (11.1-14.7) Seconds INR 1.0 APTT 25.0 (22.3-36.8) Seconds D-Dimer < 0.27 (<0.48) ug/mL Sodium 140 (137-145) mmol/L Potassium 4.0 (3.4-5.0) mmol/L Chloride 104 (98-107) mmol/L Carbon Dioxide 30 (22-30) mmol/L Anion Gap 6 (4-12) mmol/L BUN 14 (9-20) mg/dL Creatinine 1.00 (0.7-1.3) mg/dL Estim Creat Clear Calc 89 ml/min Estimated GFR > 60 (59 - ) Glucose 112 H (65-110) mg/dL Calcium 8.6 (8.4-10.2) mg/dL Total Bilirubin 0.5 (0.2-1.3) mg/dL AST 53 (17-59) U/L ALT 54 H (6-50) U/L Alkaline Phosphatase 88 (38-126) U/L Troponin I < 0.012 (0.000-0.034) ng/mL NT-Pro-B Natriuret Pep 109 H (19.9-100) pg/mL Total Protein 7.0 (6.3-8.2) g/dL Albumin 4.5 (3.5-5.1) g/dL <Brittanie Aguilar, WEED ERADICATOR - Last Filed: 08/17/24 14:31> Lab Results 08/17/24 Range/Units 15:03 WBC 24.4 H (4.5-10.0) K/mm3 RBC 5.37 (4.6-6.20) M/mm3 Hgb 16.3 (14.0-18.0) g/dL Hct 49.3 (42.0-52.0) % MCV 91.8 (80-100) fl MCH 30.4 (26-34) pg MCHC 33.1 (32-36) g/dl RDW 13.7 (11.5-14.5) % Plt Count 386 H (150-375) k/mm3 MPV 8.9 (7.4-10.4) fl Immature Gran % (Auto) Not Reportable Neut % (Auto) Not Reportable Lymph % (Auto) Not Reportable [place] % (Auto) Not Reportable Eos % (Auto) Not Reportable Baso % (Auto) Not Reportable Lymph # (Auto) Not Reportable [place] # (Auto) Not Reportable Eos # (Auto) Not Reportable Baso # (Auto) Not Reportable Abs Immat Gran (auto) Not Reportable Absolute Neuts (auto) Not Reportable Absolute Nucleated RBC Not Reportable Total Counted 100 Neutrophils % (Manual) 87 H (46-73) % Lymphocytes % (Manual) 9.0 L (18-44) % Monocytes % (Manual) 4 (3-9) % Nucleated RBC % Not Reportable Abs Lymphs (Manual) 2.19 (1.1-4.5) K/mm3 Abs Monocytes (Manual) 0.97 H (0.1-0.90) K/mm3 Platelet Estimate Slightly increased (Adequate) Schistocytes None seen PT 13.7 (11.1-14.7) Seconds INR 1.0 APTT 25.0 (22.3-36.8) Seconds D-Dimer < 0.27 (<0.48) ug/mL Sodium 140 (137-145) mmol/L Potassium 4.0 (3.4-5.0) mmol/L Chloride 104 (98-107) mmol/L Carbon Dioxide 30 (22-30) mmol/L Anion Gap 6 (4-12) mmol/L BUN 14 (9-20) mg/dL Creatinine 1.00 (0.7-1.3) mg/dL Estim Creat Clear Calc 89 ml/min Estimated GFR > 60 (59 - ) Glucose 112 H (65-110) mg/dL Calcium 8.6 (8.4-10.2) mg/dL Total Bilirubin 0.5 (0.2-1.3) mg/dL AST 53 (17-59) U/L ALT 54 H (6-50) U/L Alkaline Phosphatase 88 (38-126) U/L Troponin I < 0.012 (0.000-0.034) ng/mL NT-Pro-B Natriuret Pep 109 H (19.9-100) pg/mL Total Protein 7.0 (6.3-8.2) g/dL Albumin 4.5 (3.5-5.1) g/dL <Pelon Goel PA-C - Last Filed: 08/18/24 02:12> Discharge Plan Discharge Clinical Impression: Postoperative atelectasis <Brittanie Aguilar APRN - Last Filed: 08/17/24 14:31> Patient Disposition: Still a Patient <Brittanie Aguilar APRN - Last Filed: 08/17/24 14:31> Condition: Stable <Brittanie Aguilar APRN - Last Filed: 08/17/24 14:31>
[2024-08-17 15:12] LABS: Hematocrit 49.3 % (42.0-52.0); Hemoglobin 16.3 g/dL (14.0-18.0); Mean Corpuscular HGB Conc 33.1 g/dl (32-36); Mean Corpuscular Hemoglobin 30.4 pg (26-34); Mean Corpuscular Volume 91.8 fl (80-100); Mean Platelet Volume 8.9 fl (7.4-10.4); Platelet Count Result 386 k/mm3 (150-375); Red Blood Count 5.37 M/mm3 (4.6-6.20); Red Cell Distribution Width 13.7 % (11.5-14.5); White Blood Count 24.4 K/mm3 (4.5-10.0)
[2024-08-17 15:24] LABS: Alanine Aminotransferase 54 U/L (6-50); Albumin Level 4.5 g/dL (3.5-5.1); Alkaline Phosphatase 88 U/L (38-126); Anion Gap 6 mmol/L (4-12); Aspartate Amino Transferase 53 U/L (17-59); Bilirubin,Total 0.5 mg/dL (0.2-1.3); Blood Urea Nitrogen 14 mg/dL (9-20); Calcium 8.6 mg/dL (8.4-10.2); Carbon Dioxide 30 mmol/L (22-30); Chloride 104 mmol/L (98-107); Estimated CRCL calculation 89 ml/min; Estimated Glomerular Filt Rate > 60; Glucose 112 mg/dL (65-110); Prothrombin Time 13.7 Seconds (11.1-14.7); Sodium 140 mmol/L (137-145)
[2024-08-17 15:28] LABS: D Dimer < 0.27 ug/mL (<0.48)
[2024-08-17 15:34] LABS: NT Pro B Type Natriuretic Pept 109 pg/mL (19.9-100)
[2024-08-17 15:36] LABS: Troponin I < 0.012 ng/mL (0.000-0.034)
[2024-08-17 15:42] LABS: Lymphocytes Absolute Manual 2.19 K/mm3 (1.1-4.5); Monocytes Absolute Manual 0.97 K/mm3 (0.1-0.90); Monocytes Percent Manual 4 % (3-9); Neutrophils Percent Manual 87 % (46-73); Total Cells Counted 100
[2024-08-17 15:43] LABS: Platelet Estimate Slightly Increased (Adequate); Schistocytes None Seen
--- NOTE | 2024-08-17 18:39 | PM.IMHP ---
H&P: HPI History of Present Illness Date/Time: 08/17/24 18:39 Chief Complaint: shortness of breath, dyspnea unable to move right upper arm post rotator cuff repair Narrative: This is a 54-year-old male with a significant past medical history hypertension, obesity, status post rotator cuff repair done yesterday by Dr. Lucas who presented to the hospital today with increased shortness of breath /dyspnea and inability to move right upper extremity post nerve block. patient states that he had some numbness in his thumb, 1st 2nd and 3rd finger likely the median nerve and numbness up above the bicep of his right arm that has not resolved since surgery. He also reports that he developed a cough which does sound tight with some shortness of breath. He does have a history of smoking however he quit 5 years ago. He did report that he had gets bronchospasms with upper respiratory infections and does not have history of asthma or COPD. He states that he feels like there is something to cough up however he is not able to get it up. He reports rib pain from the coughing. He denies any fever, chills, nausea, vomiting, diarrhea, abdominal pain, chest pain. Workup in the hospital included a chest x-ray which showed consolidation at the posterior medial basal right lower lobe representing atelectasis with elevated diaphragm, mild right glenohumeral and moderate AC joint osteoarthritis. Right shoulder x-ray shown consolidation in the posterior medial basal right lower lobe representing atelectasis and elevated hemidiaphragm, mild right glenohumeral and moderate AC joint osteoarthritis. Initial labs showed a white blood cell count of 24.4, platelet count 386, ALT 54, proBNP 109, troponin negative. EKG showed sinus rhythm with a rate of 77, QTC 398. Orthopedic surgery and anesthesia consulted. Review of Systems Review of Systems: All systems reviewed & are unremarkable except as noted in HPI and below Constitutional: Constitutional: Reports as per HPI and Reports no additional constitutional complaints Eyes: Eyes: Reports as per HPI and Reports no additional eye complaints ENT: Reports system reviewed and no additional complaints, except as documented and Reports as per HPI Cardiovascular: Cardiovascular: Reports as per HPI and Reports no additional cardiovascular complaints Respiratory: Respiratory: Reports as per HPI and Reports no additional respiratory complaints Gastrointestinal: Gastrointestinal: Reports as per HPI and Reports no additional gastrointestinal complaints Genitourinary: Genitourinary: Reports no additional male genitourinary complaints and Reports as per HPI Musculoskeletal: Musculoskeletal: Reports no additional musculoskeletal complaints and Reports as per HPI Integumentary/Breasts: Skin/Breast: Reports system reviewed and no additional complaints, except as docu and Reports as per HPI Neurologic: Reports system reviewed and no additional complaints, except as documented and Reports as per HPI Psychiatric: Psychiatric: Reports no additional psychiatric complaints and Reports as per HPI [facility] Past Medical History Medical History GERD (gastroesophageal reflux disease) Hypertension Obesity Surgical History Surgical History History of cholecystectomy S/P right rotator cuff repair Family History Family History Father EtOH dependence Mother Hypertension Depression COPD (chronic obstructive pulmonary disease) Social History Social History Smoking packs per day: 1 Smoking cigarettes per day: 20.0 Years smoked: 20 Smoking pack-years: 20.00 Smoking status: Former smoker Tobacco type: cigarettes Smoking end date: 08/10/17 Alcohol intake: current Drinks per week: 2 Substance use: never Substance use type: does not use Do You Feel Safe in your Home?: Yes Lack of Transportation: No Lack of Food: Never True Current Housing: I Have Housing Concerned About Future Housing: No Difficulty Paying Gas/Electric Bills: No Difficulty Paying for Meds: No Currently Unemployed: No Education: High School Diploma/GED Difficulty w/ Childcare or Family Care: No Living arrangements: with family Occupation/Education: occupation Additional occupation/education comments: [employer] Br[employer] S[employer] Gender identity (if verbalized by the patient): Male Spiritual care concerns: No Agree to blood products: Yes Meds Home Medications and Allergies Home Medications Medication Instructions Recorded Confirmed Type rabeprazole 20 mg tablet,delayed 20 mg PO BID #180 tabs 07/04/24 08/17/24 Rx release (AcipHex) semaglutide (weight loss) 2.4 2.4 mg subcut WEEKLY 08/10/24 08/17/24 History mg/0.75 mL subcutaneous pen injector (Wegovbelem) aspirin 81 mg tablet,delayed 81 mg PO BID 14 days #28 tabs 08/16/24 08/17/24 Rx release oxycodone-acetaminophen 5 mg-325 1 - 2 tablet PO Q4-6H PRN pain 7 08/16/24 08/17/24 Rx mg tablet days #30 tabs Allergies Allergy/AdvReac Type Severity Reaction Status Date / Time cephalexin AdvReac Intermediate NAUSEA/VOMI Verified 08/16/24 10:53 TTING codeine AdvReac Intermediate NAUSEA/VOMI Verified 08/16/24 10:53 TTING Vital Signs Vital Signs - 24 hr 08/17/24 11:08 08/17/24 16:59 08/17/24 16:59 Temperature 98 F Pulse Rate 77 82 Respiratory Rate 16 18 Blood Pressure 129/74 139/84 Pulse Oximetry 97 97 97 Oxygen Delivery Room Air Room Air 08/17/24 18:16 Temperature Pulse Rate 72 Respiratory Rate 12 Blood Pressure 150/96 H Pulse Oximetry 98 Oxygen Delivery Exam Narrative: General: In no acute distress, well nourished Head: atraumatic, no encephalopathy Eyes: PERRLA, sclera clear ENT: moist mucous membranes, nasal passages clear Neck: supple, no JVD, no adenopathy, trachea midline Cardiac: Normal S1 and S2. No murmur, gallops or friction rubs, peripheral pulses intact. Respiratory: crackles noted right greater than left, no adventitious lung sounds, nonproductive cough that does sound tight /bark-like, no use of accessory muscles, no acute respiratory distress seen, currently on room air Gastrointestinal: soft, non-distended, non-tender, normoactive bowel sounds. : voiding without difficulty. Extremities: Able to move hand on the right side in the little movement from the elbow, unable to raise right arm away from body. He reports numbness mainly the medial nerve on the right hand and also has numbness of the upper arm near bicep. Skin: surgical incisions to right shoulder,OR dressing to right shoulder and place, patient is in a sling Neuro: Alert and oriented x4, cranial nerves intact, no neuro deficits. Psych: normal mood, normal affect, interactive H&P: Results Labs Labs: Short CBC 08/17/24 Range/Units 15:03 WBC 24.4 H (4.5-10.0) K/mm3 Hgb 16.3 (14.0-18.0) g/dL Hct 49.3 (42.0-52.0) % Plt Count 386 H (150-375) k/mm3 BMP 08/17/24 15:03 Sodium 140 Potassium 4.0 Chloride 104 Carbon Dioxide 30 BUN 14 Creatinine 1.00 Glucose 112 H Calcium 8.6 Cardiac Enzymes 08/17/24 Range/Units 15:03 Troponin I < 0.012 (0.000-0.034) ng/mL Liver Function 08/17/24 Range/Units 15:03 Total Bilirubin 0.5 (0.2-1.3) mg/dL AST 53 (17-59) U/L ALT 54 H (6-50) U/L Alkaline Phosphatase 88 (38-126) U/L Albumin 4.5 (3.5-5.1) g/dL Imaging Chest x-ray: Radiologist's impression: EXAMINATION: XR chest 2V, XR shoulder RT min 2V DATE: 08/17/2024 14:46 INDICATION: Shortness of breath. Chest pain. Something is wrong with right shoulder post recent surgery. TECHNIQUE: 1. PA and lateral views of the chest were obtained. 2. 4 views of the shoulder including internal and external rotated AP views, Grashey view and transscapular Y view. COMPARISON: Right shoulder and thoracic spine radiographs dated 01/25/2024 FINDINGS: Chest: Mild elevation the right hemidiaphragm. There is consolidation at the posterior medial basilar right lower lobe which could represent atelectasis or pneumonia. Remainder of the lungs are clear. No pulmonary edema, pleural effusion or pneumothorax. The cardiomediastinal silhouette is normal. Mild thoracic spondylosis with chronic mild anterior wedging of a few lower thoracic vertebral bodies. Right shoulder: Alignment is normal. No fracture. The humeral joint space is normal. Moderate acromioclavicular osteoarthritis. Soft tissues are unremarkable. IMPRESSION: 1. Consolidation at the posterior medial basilar right lower lobe which could represent atelectasis or pneumonia. 2. Mild right glenohumeral and moderate acromioclavicular osteoarthritis. Reviewed, dictated and finalized at location [employer] SAL[employer] PROFESSION[employer] right shoulder x-ray: Radiologist's impression: EXAMINATION: XR chest 2V, XR shoulder RT min 2V DATE: 08/17/2024 14:46 INDICATION: Shortness of breath. Chest pain. Something is wrong with right shoulder post recent surgery. TECHNIQUE: 1. PA and lateral views of the chest were obtained. 2. 4 views of the shoulder including internal and external rotated AP views, Grashey view and transscapular Y view. COMPARISON: Right shoulder and thoracic spine radiographs dated 01/25/2024 FINDINGS: Chest: Mild elevation the right hemidiaphragm. There is consolidation at the posterior medial basilar right lower lobe which could represent atelectasis or pneumonia. Remainder of the lungs are clear. No pulmonary edema, pleural effusion or pneumothorax. The cardiomediastinal silhouette is normal. Mild thoracic spondylosis with chronic mild anterior wedging of a few lower thoracic vertebral bodies. Right shoulder: Alignment is normal. No fracture. The humeral joint space is normal. Moderate acromioclavicular osteoarthritis. Soft tissues are unremarkable. IMPRESSION: 1. Consolidation at the posterior medial basilar right lower lobe which could represent atelectasis or pneumonia. 2. Mild right glenohumeral and moderate acromioclavicular osteoarthritis. Reviewed, dictated and finalized at location [employer] SAL[employer] PROFESSIONAL Assessment and Plan Assessment and plan (1) Atelectasis: Code(s): J98.11 - Atelectasis Status: Acute Assessment and Plan: chest x-ray showing consolidation at the posterior medial basal right lower lobe representing atelectasis with mild elevation of the right hemidiaphragm. Incentive spirometer q.2 hours while awake encourage deep breathing (2) Bronchospasm: Code(s): J98.01 - Acute bronchospasm Status: Acute Assessment and Plan: encourage deep breathing with use of incentive spirometer q.2 hours while awake Bark-like cough, nonproductive will give prednisone 40 mg now will also start azithromycin as precautionary, denies history of COPD or asthma , has history of bronchospasms in the past, former smoker quit 5 years ago may need prednisone taper as an outpatient Cough drops ordered as needed (3) S/P right rotator cuff repair: Code(s): Z98.890 - Other specified postprocedural states Status: Acute Assessment and Plan: patient is postop day 1 from a right rotator cuff repair with Dr. Lucas. Patient states he is unable to move his right arm and feels like weight. Patient did have nerve block done by Anesthesia yesterday. Orthopedic surgery and Anesthesiology were consulted continue pain control Quality VTE Prophylaxis VTE prophylaxis: pharmacologic ordered Hospitalist [facility] Advance Care Plan I have confirmed that the patient's Advanced Care Plan is present, code status is documented, or surrogate decision maker is listed in patient medical record.: Yes Medication Reconciliation I have utilized all available resources to obtain, update and review the patients current medications (includes all prescriptions, OTC, herbals, cannabis, and nutritional supplements).: Yes
--- NOTE | 2024-08-17 21:35 | ADMGEN ---
[facility] 3 [facility] Surg Room 330-02. Patient/family oriented to hospital policies and general routines including ID bracelet, bed and alarms, visiting hours, pain management, procedures, bathroom and other care routines, personal items, smoking policy, room service/diet, and visiting hours. Information on how to activate the Rapid Response Team has been discussed. Patient/Family are encouraged to report perceived risks to care and to ask questions if they do not understand what they are told or what they should do.
[2024-08-17] MEDS: ASPIRIN 81 MG ENTERIC TABLET PO (23:32)
[2024-08-17] MEDS: KETOROLAC 30 MG/ML VIAL (*BKC) IV PUSH (23:32)
[2024-08-17] MEDS: predniSONE 20 MG TABLET 40 MG PO (23:32)
[2024-08-18 00:25] VITALS: BP 137/66; PULSE 86; RESP 18; TEMP 36.8; O2SAT 98
[2024-08-18 08:00] VITALS: BP 138/84; PULSE 76; RESP 16; TEMP 36.3; O2SAT 96
[2024-08-18] MEDS: ASPIRIN 81 MG ENTERIC TABLET PO (08:00)
[2024-08-18] MEDS: PANTOPRAZOLE 40 MG TABLET PO (08:02)
[2024-08-18] MEDS: AZITHROMYCIN 250 MG TABLET 500 MG PO (08:02)
[2024-08-18] MEDS: ENOXAPARIN 40 MG/0.4 ML SYRINGE SUB-Q (08:05)
[2024-08-18 09:13] LABS: Basophils Percent Auto 0.3 % (0.2-1.2); Eosinophils Percent Auto 0.1 % (0-4.4); Hemoglobin 14.9 g/dL (14.0-18.0); Immature Granulocyte Absolute 0.13 K/mm3 (0.00-0.031); Immature Granulocyte Percent A 0.9 % (0-0.5); Lymphocytes Absolute Auto 1.31 K/mm3 (0.9-3.2); Lymphocytes Percent Auto 8.8 % (18.3-44.2); Mean Corpuscular HGB Conc 33.1 g/dl (32-36); Mean Corpuscular Volume 90.7 fl (80-100); Mean Platelet Volume 9.1 fl (7.4-10.4); Monocytes Absolute Auto 0.2 K/mm3 (0.1-0.6); Monocytes Percent Auto 1.6 % (2.6-8.5); Neutrophils Absolute Auto 13.2 K/mm3 (1.3-6.7); Neutrophils Percent Auto 88.3 % (45.5-73.1); Platelet Count Result 313 k/mm3 (150-375); Red Blood Count 4.96 M/mm3 (4.6-6.20); Red Cell Distribution Width 13.8 % (11.5-14.5)
[2024-08-18 09:27] LABS: Alanine Aminotransferase 57 U/L (6-50); Albumin Level 3.9 g/dL (3.5-5.1); Alkaline Phosphatase 83 U/L (38-126); Anion Gap 6 mmol/L (4-12); Aspartate Amino Transferase 54 U/L (17-59); Bilirubin,Total 0.6 mg/dL (0.2-1.3); Blood Urea Nitrogen 19 mg/dL (9-20); Calcium 8.4 mg/dL (8.4-10.2); Carbon Dioxide 25 mmol/L (22-30); Chloride 107 mmol/L (98-107); Estimated CRCL calculation 79 ml/min; Estimated Glomerular Filt Rate > 60; Glucose 198 mg/dL (65-110); Potassium 4.4 mmol/L (3.4-5.0); Sodium 138 mmol/L (137-145)
[2024-08-18 14:00] VITALS: BP 134/72; PULSE 78; RESP 16; TEMP 36.3; O2SAT 97
--- NOTE | 2024-08-18 15:05 | P.CONOP_ITS ---
Assessment and Plan Assessment and plan (1) S/P right rotator cuff repair: Code(s): Z98.890 - Other specified postprocedural states Status: Acute (2) Postoperative atelectasis: Code(s): J95.89 - Other postprocedural complications and disorders of respiratory system, not elsewhere classified; J98.11 - Atelectasis Status: Acute (3) Orthopedic aftercare: Code(s): Z47.89 - Encounter for other orthopedic aftercare Status: Acute (4) Bronchospasm: Code(s): J98.01 - Acute bronchospasm Status: Acute (5) Atelectasis: Code(s): J98.11 - Atelectasis Status: Acute Plan Patient complained of shortness of breath and chest pain yesterday POD#1 after shoulder arthroscopic surgery. He received an interscalene block. He was advised to go to the Emergency room where he was admitted for shortness of breath. Reviewed chest and shoulder radiographs. Right hemidiaphragm was elevated and atelectasis seen. WBC 24. Patient was instructed to use the incentive spirometer and is using it often. Today his WBC is 15. Likely postoperative response. New radiograph was taken today showing clear lungs and no elevation of the right hemidiaphragm. He is feeling much better. No longer labored breathing. Continue postoperative instructions given at the time of surgery. Will order continuous cold flow. Okay for discharge from orthopedic standpoint when cleared medically. History of Present Illness HPI Consult date: 08/18/24 Chief complaint: Post operative atelectasis with R hemidiaphragm Narrative: Patient complained of shortness of breath and chest pain yesterday POD#1 after s ulder arthroscopic surgery. He received an interscalene block. He was advised to go to the Emergency room where he was admitted for shortness of breath. He is feeling much better today. The block has warn off in his hand. He is no longer having trouble breathing and is speaking without labored breathing. Patient does still have some chest pain although it is improving. No other complaints. Shoul margie pain is manageable. Review of Systems Review of Systems: All systems reviewed & are unremarkable except as noted in HPI and below PMFSH Past Medical History Medical History GERD (gastroesophageal reflux disease) Hypertension Obesity Surgical History Surgical History History of cholecystectomy S/P right rotator cuff repair Family History Family History Father EtOH dependence Liver transplant recipient Mother Depression COPD (chronic obstructive pulmonary disease) Hypertension Social History Social History Smoking packs per day: 1 Smoking cigarettes per day: 20.0 Years smoked: 20 Smoking pack-years: 20.00 Smoking status: Former smoker Tobacco type: cigarettes Smoking end date: 08/10/17 Alcohol intake: current Drinks per week: 1 Substance use: never Substance use type: does not use Do You Feel Safe in your Home?: Yes Lack of Transportation: No Lack of Food: Never True Current Housing: I Have Housing Concerned About Future Housing: No Difficulty Paying Gas/Electric Bills: No Difficulty Paying for Meds: No Currently Unemployed: No Education: High School Diploma/GED Difficulty w/ Childcare or Family Care: No Living arrangements: with family Occupation/Education: occupation 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 Gender identity (if verbalized by the patient): Male Spiritual care concerns: No Agree to blood products: Yes Meds Home Medications and Allergies Home Medications Medication Instructions Recorded Confirmed Type rabeprazole 20 mg tablet,delayed 20 mg PO BID #180 tabs 07/04/24 08/17/24 Rx release (AcipHex) semaglutide (weight loss) 2.4 2.4 mg subcut WEEKLY 08/10/24 08/17/24 History mg/0.75 mL subcutaneous pen injector (Wegovy) aspirin 81 mg tablet,delayed 81 mg PO BID 14 days #28 tabs 08/16/24 08/17/24 Rx release oxycodone-acetaminophen 5 mg-325 1 - 2 tablet PO Q4-6H PRN pain 7 08/16/24 08/17/24 Rx mg tablet days #30 tabs Allergies Allergy/AdvReac Type Severity Reaction Status Date / Time cephalexin AdvReac Intermediate NAUSEA/VOMI Verified 08/16/24 10:53 TTING codeine AdvReac Intermediate NAUSEA/VOMI Verified 08/16/24 10:53 TTING Vital Signs Vital Signs - 24 hr 08/17/24 16:59 08/17/24 16:59 08/17/24 18:16 Temperature Pulse Rate 82 72 Respiratory Rate 18 12 Blood Pressure 139/84 150/96 H Pulse Oximetry 97 97 98 Oxygen Delivery Room Air Oxygen Flow Rate 08/17/24 19:30 08/17/24 20:57 08/17/24 20:57 Temperature Pulse Rate 80 Respiratory Rate 18 Blood Pressure 172/82 H Pulse Oximetry 98 96 98 Oxygen Delivery Room Air Nasal Cannula Oxygen Flow Rate 2 08/17/24 20:56 08/17/24 21:13 08/17/24 22:00 Temperature 97.8 F Pulse Rate 74 Respiratory Rate 18 18 Blood Pressure 142/84 H 141/84 H Pulse Oximetry 98 Oxygen Delivery Oxygen Flow Rate 08/18/24 00:25 08/17/24 23:35 08/18/24 08:02 Temperature 98.2 F Pulse Rate 86 Respiratory Rate 18 Blood Pressure 137/66 Pulse Oximetry 98 98 Oxygen Delivery Room Air Room Air Oxygen Flow Rate 08/18/24 08:00 08/18/24 14:00 Temperature 97.3 F L 97.3 F L Pulse Rate 76 78 Respiratory Rate 16 16 Blood Pressure 138/84 134/72 Pulse Oximetry 96 97 Oxygen Delivery Oxygen Flow Rate Exam Narrative: 54 y/o male. Resting comfortably. No feliciano rtness of breath or labored breathing. Shoulder in sling. Top dressing removed today. Steri-strips intact. Expected passive range of motion. Expected ecchymosis. Fires deltoid. Distal light touch sensation intact. Distal pulses palpable. Results Labs 08/18/24 09:05 08/18/24 09:05 Labs: Abnormal lab results 08/17/24 08/18/24 Range/Units 15:03 09:05 WBC 24.4 H 15.0 H (4.5-10.0) K/mm3 Plt Count 386 H (150-375) k/mm3 Immature Gran % (Auto) 0.9 H (0-0.5) % Neut % (Auto) 88.3 H (45.5-73.1) % Lymph % (Auto) 8.8 L (18.3-44.2) % [place] % (Auto) 1.6 L (2.6-8.5) % Abs Immat Gran (auto) 0.13 H (0.00-0.031) K/mm3 Absolute Neuts (auto) 13.2 H (1.3-6.7) K/mm3 Neutrophils % (Manual) 87 H (46-73) % Lymphocytes % (Manual) 9.0 L (18-44) % Abs Monocytes (Manual) 0.97 H (0.1-0.90) K/mm3 Glucose 112 H 198 H (65-110) mg/dL ALT 54 H 57 H (6-50) U/L NT-Pro-B Natriuret Pep 109 H (19.9-100) pg/mL Total Protein 6.0 L (6.3-8.2) g/dL H & H 08/17/24 08/18/24 Range/Units 15:03 09:05 Hgb 16.3 14.9 (14.0-18.0) g/dL Hct 49.3 45.0 (42.0-52.0) % Coagulation 08/17/24 Range/Units 15:03 INR 1.0 All other labs normal.
--- NOTE | 2024-08-18 16:09 | P.DS_ITS ---
DS: Admitting Diagnosis Discharge Date 08/18/2024 Admitting Diagnosis Shortness of Breath DS: Discharge Diagnosis Discharge Diagnosis (1) Atelectasis: Code(s): J98.11 - Atelectasis Status: Acute Assessment and Plan: * chest x-ray showing consolidation at the posterior medial basal right lower lobe representing atelectasis with mild elevation of the right hemidiaphragm. * Incentive spirometer q.2 hours while awake * encouraged deep breathing * Repeat CXR: Clear lungs. * No cardiopulmonary symptoms and good O2 sats > 90 % on RA. (2) Bronchospasm: Code(s): J98.01 - Acute bronchospasm Status: Acute Assessment and Plan: * encouraged with deep breathing and IS use q.2 hrs while awake. * Bark-like cough, nonproductive - Much improved with cough drops and almost resolved. * Given prednisone 40 mg X1 on presentation. * Started empricially on PO Azithromycin and we'll complete 5 days treatment. * Denies Hx of COPD or asthma, but has Hx of bronchospasms in the past, former smoker quit 5 years ago. * Continue cough drops PRN. (3) S/P right rotator cuff repair: Code(s): Z98.890 - Other specified postprocedural states Status: Acute Assessment and Plan: * POD # 2 from R. Rotator cuff repair per Dr. Lucas. * Patient had nerve block per Anesthesia for surgical procedure. * Pt had numbness to RUE POD # 1 and was unable to move right arm. * Numbness resolved and pt cleared for discharge per ortho with outpatient follow-up. * continue pain meds PRN. Plan Discharge Home on Self Care. DS: Summary Hospital Course Reason for hospitalization: Shortness of Breath. Hospital Course: Patient was discharged from this facility after Right Rotator Cuff Repair, day before he presented on this admission, reporting SOB at home and right arm numbness. He reported intermittent episodes of coughs that were associated with SOB, and pt feeling like he was unable to cough up any sputum. Pt also reported that the numbness to his arm, from upper arm and down to his fingers, that was present post-op, had not improved or resolved, and he felt like his Right arm was paralysed. Patient also reported a Hx of bronchospasms with URI. 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 Initial labs showed WBC 24.4, platelet 386, ALT 54, proBNP 109, troponin negative. EKG showed SR Rate 77, QTC 398. Orthopedic surgery and anesthesia were consulted. Patient was given oral steroids, started empirically on Azithromycin, offered cough drops PRN, and given IS as well and encouraged with use Q2hrs while awake. Day after admission patient reports much improvement to his symptoms. Reports improvement in breathing with SOB resolved. Pt also reports Right Arm sensation appears normalized with numbness resolved. Repeat CXR prior to discharge shows clear lungs. Pt has been cleared for discharge by the Ortho team and no acute distress was noted or reported prior to discharge. Status at Discharge Functional status at discharge: independent ambulation Overall status at discharge: patient is progressing back to baseline Time Spent with Patient Time attestation: Total time spent providing and/or coordinating discharge services: Time spent: Greater than 30 minutes Exam Narrative: General: In no acute distress, well nourished Head: atraumatic, no encephalopathy Eyes: PERRLA, sclera clear ENT: moist mucous membranes, nasal passages clear Neck: supple, no JVD, no adenopathy, trachea midline Cardiac: Normal S1 and S2. No murmurs, peripheral pulses intact. Respiratory: Lungs clear trisha. with some intermittent episodes of moist non- productive coughs mainly during deep breath. O2 sats > 90 % on RA. Gastrointestinal: soft, non-distended, non-tender, normoactive bowel sounds. : voiding without difficulty. 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 on the right side good movement from distally. Able to extend whole right arm straight anteriorly. Numbness to R. Hand and upper R. Arm resolved and pt with good sensations. Skin: surgical incisions to right shoulder,OR dressing to right shoulder and place, patient is in a sling. Neuro: Alert and oriented x4, cranial nerves intact, no focal neuro deficits. Psych: normal mood and affect. DS: Data Data Completed and Pending Labs on day of discharge: Labs from last 24 hours 08/18/24 09:05 WBC 15.0 H RBC 4.96 Hgb 14.9 Hct 45.0 MCV 90.7 MCH 30.0 MCHC 33.1 RDW 13.8 Plt Count 313 MPV 9.1 Immature Gran % (Auto) 0.9 H Neut % (Auto) 88.3 H Lymph % (Auto) 8.8 L [place] % (Auto) 1.6 L Eos % (Auto) 0.1 Baso % (Auto) 0.3 Lymph # (Auto) 1.31 [place] # (Auto) 0.2 Eos # (Auto) 0.0 Baso # (Auto) 0.0 Abs Immat Gran (auto) 0.13 H Absolute Neuts (auto) 13.2 H Absolute Nucleated RBC 0.000 Nucleated RBC % 0.0 Sodium 138 Potassium 4.4 Chloride 107 Carbon Dioxide 25 Anion Gap 6 BUN 19 Creatinine 1.00 Estim Creat Clear Calc 79 Estimated GFR > 60 Glucose 198 H Calcium 8.4 Total Bilirubin 0.6 AST 54 ALT 57 H Alkaline Phosphatase 83 Total Protein 6.0 L Albumin 3.9 Discharge Plan Discharge Attending physician on discharge: Nay Guerrero Consulting providers: Yuri Lucsa; Shaan Adler Discharging Clinician: Sotero Bejarano Anticipated Discharge Date/Time: 08/18/24 16:35 Patient Disposition: Home, Self-Care Activity: other - see discharge instructions Diet: heart healthy Patient Instructions: Antibiotic Form Stand Alone Forms: General Discharge Information Follow-up/Referrals: Yuri Lucas MD [Primary Care Provider] - 2 Weeks Discharge Medications: New Chloraseptic Sore Throat 6-10 mg Lozenge 1 ezra PO PRN PRN (Reason: Sore Throat) Qty: 14 0RF azithromycin [Zithromax] 250 mg Tablet 500 mg PO DAILY Qty: 3 0RF Continued Wegovy 2.4 mg/0.75 mL pen injector 2.4 mg SUBCUT WEEKLY Rx Instructions: Sundays; last taken Thursday08/05/24 aspirin 81 mg tablet,delayed release (DR/EC) 81 mg PO BID 14 Days Qty: 28 0RF Rx Instructions: post-op Rx 08/16/24 oxycodone-acetaminophen 5-325 mg tablet 1 - 2 tablet PO Q4-6H PRN (Reason: pain) 7 Days Qty: 30 0RF Rx Instructions: just prescribed 08/16/24 post-op rabeprazole [AcipHex] 20 mg tablet,delayed release (DR/EC) 20 mg PO BID Qty: 180 2RF Date of admission: 08/17/24 18:33 Primary Care Provider: Yuri Lucas Admitting Provider: Serg Bhatt Attending physician on admission: Serg Bhatt Condition: Stable Quality If No VTE Prophylaxis Answer both mechanical and pharmacologic: Reason no mechanical VTE proph: low risk/not indicated Reason no pharmacologic proph: low risk/not indicated Hospitalist MIPS Heart Failure (Exclusion) Patient has history of Heart Transplant or Left Ventricular Assistive Device?: Yes IF YES, STOP HERE Heart Failure (Qualifier) Patient has current or prior documentation of LVEF less than or equal to 40%, or mod/servere depressed LVSF?: No IF NO, STOP HERE
--- NOTE | 2024-08-18 17:15 | P.PNAN_ITS ---
Anes - Prog Note Post-Op Date/Time: 08/18/24 17:15 Cardiovascular status: normal Respiratory status: normal Airway patency: baseline Mental status: baseline Post-Op hydration status: normal Vital Signs: Last Vital Signs Temp 36.3 C L 08/18/24 14:00 Pulse 78 08/18/24 14:00 Resp 16 08/18/24 14:00 BP 134/72 08/18/24 14:00 Pulse Ox 97 08/18/24 14:00 O2 Del Method Room Air 08/18/24 08:02 O2 Flow Rate 2 08/17/24 20:57 Pain Score (VAS): 0 I/O: Intake & Output 08/18/24 08/18/24 08/18/24 07:59 15:59 23:59 Intake Total 250 480 Output Total 0 Balance 250 480 Laboratory Tests 08/18/24 09:05 08/18/24 09:05 08/18/24 09:05 WBC 15.0 H RBC 4.96 Hgb 14.9 Hct 45.0 MCV 90.7 MCH 30.0 MCHC 33.1 RDW 13.8 Plt Count 313 MPV 9.1 Immature Gran % (Auto) 0.9 H Neut % (Auto) 88.3 H Lymph % (Auto) 8.8 L [place] % (Auto) 1.6 L Eos % (Auto) 0.1 Baso % (Auto) 0.3 Lymph # (Auto) 1.31 [place] # (Auto) 0.2 Eos # (Auto) 0.0 Baso # (Auto) 0.0 Abs Immat Gran (auto) 0.13 H Absolute Neuts (auto) 13.2 H Absolute Nucleated RBC 0.000 Nucleated RBC % 0.0 Sodium 138 Potassium 4.4 Chloride 107 Carbon Dioxide 25 Anion Gap 6 BUN 19 Creatinine 1.00 Estim Creat Clear Calc 79 Estimated GFR > 60 Glucose 198 H Calcium 8.4 Total Bilirubin 0.6 AST 54 ALT 57 H Alkaline Phosphatase 83 Total Protein 6.0 L Albumin 3.9 Patient Feedback: Patient satisfied with anesthetic care. Other Findings: pt has returned to baseline now that block has worn off. saw in wheelchair and discussed events as he was being discharged.
== END 2024-08-18 17:00 | disposition home or self-care (01) ==
LOC: ANHED 17:00 → ANH3MEDSUR 08-18 16:36
PROVIDERS: Registered Nurse; Admitting Provider Internal Medicine; Emergency Provider Physician Assistant; PCP Orthopaedic Surgery; Visit Provider Nurse Practitioner Adult Health
DX: J95.89 Other postprocedural complications and disorders of respiratory system, not elsewhere classified (principal); J98.11 Atelectasis; J98.01 Acute bronchospasm; K21.9 Gastro-esophageal reflux disease without esophagitis; I10 Essential (primary) hypertension; Z79.82 Long term (current) use of aspirin; Z79.899 Other long term (current) drug therapy; Z87.891 Personal history of nicotine dependence; Z90.49 Acquired absence of other specified parts of digestive tract
CPT/HCPCS: 36415; 71045; 71046; 73030; 80053; 83880; 84484; 85025; 85380; 85610; 85730; 93005; 96372; 96374; 99285; A9270; G0378; J1650; J1885; J7512

== ENCOUNTER 2025-06-29 05:45 | Day surgery (SDC) | payer OTHER, SELFPAY ==
[2025-06-15 14:20] VITALS: BMI 31.4
[2025-06-29 06:39] VITALS: BMI 31.9
[2025-06-29 06:40] VITALS: BP 126/88; PULSE 67; RESP 18; TEMP 36.4; O2SAT 97
--- NOTE | 2025-06-29 06:48 | P.HP_ITS ---
History of Present Illness History of Present Illness Chief complaint: Mucus Cyst Left Index Finger Narrative: Patient seen and examined in pre-operative holding area. No interval change in medical history or symptoms. Patient recalls previous discussion of benefits and alternatives to procedure. Continues to desire to proceed with left index finger mucous cyst excision. Reviewed procedure, post-op expectations and risks including but not limited to bleeding, infection, injury to tendon/nerve/vessel, decreased hand function, stiffness, RSD, no change or worsening of symptoms, recurrence. I discussed the possible use of assistants and their participation in the case. Patient stated understanding and signed the consent form wishing to proceed. Review of Systems Review of Systems: All systems reviewed & are unremarkable except as noted in HPI and below PMFSH Past Medical History Medical History GERD (gastroesophageal reflux disease) Obesity Hypertension Surgical History Surgical History S/P right rotator cuff repair (~08/16/24) Arthroscopic with SAD and labral BRIDGET History of cholecystectomy Family History Family History Father EtOH dependence Liver transplant recipient Mother Depression COPD (chronic obstructive pulmonary disease) Hypertension Social History Social History (Updated 12/28/24 @ 08:02 by Maria Eugenia Castelan CMA) Smoking packs per day: 1 Smoking cigarettes per day: 20.0 Years smoked: 20 Smoking pack-years: 20.00 Smoking status: Former smoker Tobacco type: cigarettes Second hand tobacco smoke exposure: Yes Smoking end date: 09/28/16 Alcohol intake: current Drinks per week: 7 Substance use: never Substance use type: does not use Do You Feel Safe in your Home?: Yes Lack of Transportation: No Lack of Food: Never True Current Housing: I Have Housing Concerned About Future Housing: No Difficulty Paying Gas/Electric Bills: No Difficulty Paying for Meds: No Currently Unemployed: No Education: High School Diploma/GED Difficulty w/ Childcare or Family Care: YES Living arrangements: with family Occupation/Education: occupation 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 Route 03/30/25 06/29/25 Rx release .COMPLEX #180 tabs tramadol 50 mg tablet 50 mg PO Q6H PRN pain #12 ta bs 06/29/25 Rx Allergies Allergy/AdvReac Type Severity Reaction Status Date / Time cephalexin AdvReac Intermediate NAUSEA/VOMI Verified 06/29/25 06:24 TTING codeine AdvReac Intermediate NAUSEA/VOMI Verified 06/29/25 06:24 TTING Vital Signs Vital Signs - 24 hr 06/29/25 06:40 Temperature 36.4 C Pulse Rate 67 Respiratory Rate 18 Blood Pressure 126/88 Pulse Oximetry 97 Oxygen Delivery Room Air Exam Narrative: unchanged Assessment and Plan Assessment and plan (1) Digital mucous cyst: Code(s): M67.449 - Ganglion, unspecified hand Status: Acute Assessment and Plan: cont as above
--- NOTE | 2025-06-29 06:49 | P.OP_ITS ---
Procedure Note - Detailed Date of Procedure 06/29/25 Pre-op Diagnosis Mucus Cyst Left Index Finger Post-op Diagnosis Same Procedure Performed L IF mucous cyst excision Surgeon Diego Villa MD Analyst Business Analysis Kayla Arrington PA-C Anesthesia MAC Description of Procedure INFORMED CONSENT: The patient was seen and examined and marked in the pre-op area.? The patient signed the consent form. PROCEDURE IN DETAIL:The patient taken back to OR on the stretcher in supine position. Time out performed with anesthesia, surgeon and staff agreeing on patient's name site and surgery to be performed SCDs were placed on the lower extremities and inflated. A tourniquet was placed on {left} upper extremity and antibiotics given IV After anesthesia administered sedation I injected {3}cc 1%lido and 0.5% marcaine plain for digital block in the palm The?{left upper extremity}?was prepped and draped in sterile fashion the??{left upper extremity} was? exsanguinated with Esmarch bandage and tourniquet inflated to 250mmHg I proceeded with making a wedge incision over the affected tissue and cyst at the proximal nail fold of the left index finger through skin and dermis with a 15 blade scalpel. This incision was carried proximally back to the IP joint and skin flaps elevated. I proceeded with circumferential dissection around the cystic mass that also had fibrotic tissue around it going back to the D IP joint. The cyst and tissue was resected with 15 blade scalpel. No palpable osteophyte was appreciated at the D IP joint. I used bipolar cautery to cauterize the base of the cyst near its suspected origin. I irrigated with normal saline. I was unable to close this skin defect at the proximal nail fold primarily so I proceeded with constructing a rotation advancement flap extending my incision proximally in a curvilinear fashion and releasing the radial and ulnar proximal nail fold elevating the skin flaps. I was able to rotate and advance the ulnarly based flap to reconstruct a nice curve to the proximal nail fold. This flap was secured with 4-0 and 5 0 chromic suture. A dressing of Dermabond for the nail and xeroform for the sutures, 4x4, and tube gauze was applied after the tourniquet was let down noting the hand was warm and well perfused. The patient was then awaken from anesthesia and transferred to the recovery room in stable condition.? Complications - none EBL- 0cc Disposition - home in stable condition Kayla Arrington PA-C was essential for positioning, retraction, closure and dressing placement [facility] Billing Surgery - Charge Forward: Surgery Billing ([id number] same for kayla adding )
[2025-06-29] MEDS: LACTATED RINGERS 1,000 ML 30 ML IV CONT (06:57)
[2025-06-29] MEDS: ACETAMINOPHEN 500 MG TABLET 1000 MG PO (06:58)
--- NOTE | 2025-06-29 07:08 | P.PNAN_ITS ---
Anes - Initial Pre Proc Eval Procedure: Operation Date: 06/29/25 07:30 Proposed Procedures p Excision Mucous Cyst Left Index Finger - Diego Villa MD Date/Time: 06/29/25 07:08 Surgeon: Diego Villa MD Pre Op Diagnosis: Mucus Cyst Left Index Finger Patient Data Age: 55 Gender: M Height: 1.8 m Weight: 103.9 kg Last Vital Signs Temp 97.6 F 06/29/25 06:40 Pulse 67 06/29/25 06:40 Resp 18 06/29/25 06:40 BP 126/88 06/29/25 06:40 Pulse Ox 97 06/29/25 06:40 O2 Del Method Room Air 06/29/25 06:40 Allergies Allergy/AdvReac Type Severity Reaction Status Date / Time cephalexin AdvReac Intermediate NAUSEA/VOMI Verified 06/29/25 06:24 TTING codeine AdvReac Intermediate NAUSEA/VOMI Verified 06/29/25 06:24 TTING Home Medications ?Medication ?Instructions ?Recorded ?Confirmed ?Type semaglutide (weight loss) 2.4 See Rx Instructions .Rou te 08/29/24 06/15/25 Rx mg/0.75 mL subcutaneous pen .COMPLEX #4 mL injector (Wegovy) rabeprazole 20 mg tablet,delayed See Rx Instructions . Route 03/30/25 06/29/25 Rx release .COMPLEX #180 tabs tramadol 50 mg tablet 50 mg PO Q6H PRN pain #12 ta bs 06/29/25 Rx Patient hx anesthesia problems: none Family hx anesthesia problems: none Results Review: All pre-operative results and documents have been reviewed as part of the pre- operative evaluation. [facility] Past Medical History Medical History GERD (gastroesophageal reflux disease) Obesity Hypertension Surgical History Surgical History S/P right rotator cuff repair (~08/16/24) Arthroscopic with SAD and labral BRIDGET History of cholecystectomy Family History Family History Father EtOH dependence Liver transplant recipient Mother Depression COPD (chronic obstructive pulmonary disease) Hypertension Social History Social History (Updated 12/28/24 @ 08:02 by Maria Eugenia Castelan CMA) Smoking packs per day: 1 Smoking cigarettes per day: 20.0 Years smoked: 20 Smoking pack-years: 20.00 Smoking status: Former smoker Tobacco type: cigarettes Second hand tobacco smoke exposure: Yes Smoking end date: 09/28/16 Alcohol intake: current Drinks per week: 7 Substance use: never Substance use type: does not use Do You Feel Safe in your Home?: Yes Lack of Transportation: No Lack of Food: Never True Current Housing: I Have Housing Concerned About Future Housing: No Difficulty Paying Gas/Electric Bills: No Difficulty Paying for Meds: No Currently Unemployed: No Education: High School Diploma/GED Difficulty w/ Childcare or Family Care: YES Living arrangements: with family Occupation/Education: occupation 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 Informed Consent: The patient's anesthetic plan and its attendant risks and benefits were d iscussed with the patient/family/POA. Questions were solicited and answers provided to the satisfaction of the patient/family/POA.
[2025-06-29] MEDS: ceFAZolin SODIUM 2 GM/20 ML SW SYRINGE IV PUSH (07:21)
--- NOTE | 2025-06-29 07:33 | WPDANESPN ---
Anes - Prog Note Post-Op Date/Time: 06/29/25 07:33 Vital Signs: Last Vital Signs Temp 97.6 F 06/29/25 06:40 Pulse 67 06/29/25 06:40 Resp 18 06/29/25 06:40 BP 126/88 06/29/25 06:40 Pulse Ox 97 06/29/25 06:40 O2 Del Method Room Air 06/29/25 06:40 Pain Score (VAS): no Patient Feedback: Patient satisfied with anesthetic care.
[2025-06-29] MEDS: BUPivacaine HCL 0.5% 10 ML AMP INFILTRATE (07:38)
[2025-06-29] MEDS: LIDOCAINE 1% LOCAL INJ 20 ML VIAL 10 ML INFILTRATE (07:39)
[2025-06-29 07:50] VITALS: BP 127/83; PULSE 70; RESP 15; O2SAT 97
[2025-06-29 08:00] VITALS: BP 123/91; PULSE 70; RESP 16; O2SAT 96
[2025-06-29 08:10] VITALS: BP 128/96; PULSE 64; RESP 16; O2SAT 97
== END 2025-06-29 08:15 | disposition home or self-care (01) ==
PROVIDERS: PCP Nurse Practitioner Adult Health; Visit Provider Plastic Surgery
PROC: (CPT 26160; principal; 2025-06-29 07:30)
DX: M67.442 Ganglion, left hand (principal)
CPT/HCPCS: 26160

== ENCOUNTER 2025-06-29 10:33 | Outpatient (NON) | payer OTHER, SELFPAY ==
--- NOTE | 2025-06-29 | S_PTH ---
PATIENT: Hamilton Saldivar LOC: [facility] #:[id number] AGE/SX: 55/M ROOM: RE06/29/[address]: Diego Villa MD : 1970 BED: DIS: 06/29/2025 SPEC #: [id number] RECD: 06/30/25 10:55 STATUS: AVIS RENori #: [id number] DARWIN: 06/29/25 00:[address]: Diego Villa DEPT: [facility] Surgical RECD BY: Naveed Mayo ENTERED: 06/30/25 10:58 SP TYPE: Surgical OTHR DR: Mala Seaman APRN Tissues: A - Cyst Procedures: Hematoxylin and Eosin Stain Gross and Microscopic Level 4
--- OUTSIDE RECORDS SUMMARY | 2025-06-30 10:42 | XMS_ITS | Clinical Summary ---
Author Organization [facility] Address [address] [place] [address] Phone Care Team Providers Care Csr Technician Name Role Phone Leandra Jacob MD Primary Care Provider [phone] Allergies Active Allergy Reactions Criticality Noted Date Comments Codeine Vomiting 06/07/2017 Cephalexin Hives 06/07/2017 Medications traMADol (ULTRAM) 50 MG Tablet Take 1-2 Tabs by mouth every 6 hours as needed for Pain. 20 Tab 7 Active Additional Information Patient not taking.Reported on 11/02/2019 fluticasone (FLONASE) 50 MCG/ACT Suspension fluticasone propionate 50 mcg/actuation nasal spray,suspension SPRAY TWICE IEN QD Active loratadine (CLARITIN) 10 MG Tablet loratadine 10 mg tablet TK 1 T PO QAM Active montelukast (SINGULAIR) 10 MG Tablet montelukast 10 mg tablet TK 1 T PO QPM Active tamsulosin (FLOMAX) 0.4 MG Capsule tamsulosin 0.4 mg capsule Take 1 capsule every day by oral route for 10 days. Active tiZANidine (ZANAFLEX) 4 MG Tablet tizanidine 4 mg tablet Active Immunizations Immunization Administration Dates Next Due TDAP Vaccine 06/07/2017 Social History Tobacco Use Types Packs/Day Years Used Date Smoking Tobacco: Never Smokeless Tobacco: Never Alcohol Use Standard Drinks/Week Comments Yes 0 (1 standard drink = 0.6 oz pur e alcohol) Socially Sex and Gender Information Value Date Recorded Sex Assigned at Not on file Legal Sex Male 10:21 PM CDT Gender Identity Not on file Sexual Orientation Not on file Last Filed Vital Signs Vital Sign Reading Time Taken Comments Blood Pressure 126/82 11/02/2019 2:16 PM SURGEON ASSISTANT Pulse 95 11/02/2019 2:16 PM SURGEON ASSISTANT Temperature 36.4 C (97.6 F) 11/02/2019 2:16 PM SURGEON ASSISTANT Respiratory Rate 16 11/02/2019 2:16 PM SURGEON ASSISTANT Oxygen Saturation 97% 11/02/2019 2:16 PM SURGEON ASSISTANT Inhaled Oxygen Concentration - - Weight 108 kg (238 lb) 11/02/2019 2:16 PM SURGEON ASSISTANT Height 182.9 cm (6') 11/02/2019 2:16 PM SURGEON ASSISTANT Body Mass Index 32.28 11/02/2019 2:16 PM SURGEON ASSISTANT Plan of Treatment Health Maintenance Due Date Last Done Comments Hepatitis C Virus (HCV) Screening 1970 Hepatitis B Immunization (1 of 3 - 19+ 3-dose series) 1988 Cologuard 2014 Colonoscopy 2014 Colorectal Cancer Screening 2014 Immunochemical Fecal Occult Blood 2014 Pneumococcal Immunization (5 0+ years) (1 of 1 - PCV) 2019 Zoster Immunization (1 of 2) 2019 Influenza Immunization (#1) 2025 SARS-COV-2 Immunization (3 - 2024- season) 2025 12/20/2020, 11/29/2020 Respiratory Syncytial Virus (RSV) Immunization (Adult) (1 - 1-dose 75+ series) 2044 DTaP/Tdap/Td Immunization Discontinued 2016, 09/28/2011 Human Papillomavirus (HPV) Immunization Aged Out No longer eligible based on patient's age to complete this topic Meningococcal Immunization (ACWY) Aged Out No longer eligible based on patient's age to complete this topic Rotavirus Immunization Aged Out No lo nger eligible based on patient's age to complete this topic Care Teams Csr Technician Relationship Specialty Start Date End Date Leandra Jacob MD [address] [place] [address] PCP - General Family Medicine 06/07/17
--- OUTSIDE RECORDS SUMMARY | 2025-06-30 10:42 | XMS_ITS | Clinical Summary ---
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 Name Role Phone Mala Seaman NP Primary Care Provider [phone] Allergies Active Allergy Reactions Criticality Noted Date Comments Cephalexin Hives Medium 06/07/2017 Codeine Vomiting Low 06/07/[address] (ACIPHEX) 20 mg EC tablet Take 1 tablet (20 mg total) by mouth 2 (two) times a day 07/04/2024 Active Wegovy 2.4 mg/0.75 mL auto-injector 0.75 mL (2.4 mg total) every 7 days 09/08/2024 Active oxyCODONE-aceta minophen (PERCOCET) 5-325 mg per tablet TAKE 1-2 TABLETS BY MOUTH EVERY 4-6 HOURS NEEDED FOR PAIN FOR 7 DAYS 08/16/2024 Active Active Problems No known active problems Surgical History Surgery Date Site/Laterality Comments GALLBLADDER SURGERY HAND SURGERY SEPTOPLASTY Medical History Medical History Date Comments Heart murmur Kidney stone Family History Medical History Relation Name Comments Alcohol abuse Father Arthritis Father Arthritis Mother Relation Name Status Comments Father Mother Social History Tobacco Use Types Packs/Day Years Used Date Smoking Tobacco: Former Cigarettes Passive Smoke Exposure: Past Smokeless Tobacco: Never Tobacco Cessation:Counseling Given: Not Answered Sex and Gender Information Value Date Recorded Sex Assigned at Not on file Legal Sex Male 4:51 PM [employer] Gender Identity Not on file Sexual Orientation Not on file Obstetrics History Last Filed Vital Signs Vital Sign Reading Time Taken Comments Blood Pressure 119/74 09/14/2024 1:30 PM [employer] Pulse 79 09/14/2024 1:30 PM [employer] Temperature 37 C (98.6 F) 09/14/2024 1:30 PM [employer] Respiratory Rate - - Oxygen Saturation 98% 09/14/2024 1:30 PM [employer] Inhaled Oxygen Concentration - - Weight 104.8 kg (231 lb) 09/14/2024 1:30 PM [employer] Height 180.3 cm (5' 11) 09/14/2024 1:30 PM [employer] Body Mass Index 32.22 09/14/2024 1:30 PM [employer] Plan of Treatment Health Maintenance Due Date Last Done Comments Colon Cancer Screening-Colonoscopy 1969 Depression Screening 1969 Hepatitis C Screening 1969 Prostate Cancer Screening-PSA 1969 Hepatitis B Screening 1987 Regular Well Visit/Exam 18-64 1987 Zoster Vaccine (1 of 2) 2019 Influenza Vaccine (#1) 2025 DTaP/Tdap/Td Vaccine (3 - Td or Tdap) 06/07/2027 06/07/2017, 09/28/2011 Pneumococcal vaccine <65 Aged Out No longer eligible based on patient's age to complete this topic Insurance [facility] [place] [address] [facility] [employer] HMO [facility] HMO/O Address: [facility] [id number] [place] [id number] Care Teams Machine Sewer Relationship Specialty Start Date End Date Mala Seaman NP [address] [place] [address] PCP - General Nurse Practitioner 09/14/24
== END 2025-06-29 10:34 | disposition home or self-care (01) ==
PROVIDERS: PCP Nurse Practitioner Adult Health; Visit Provider Plastic Surgery
DX: M18.11 Unilateral primary osteoarthritis of first carpometacarpal joint, right hand (principal); M67.442 Ganglion, left hand
CPT/HCPCS: 88305